=== PATIENT | female | born 1965 | race Caucasian/White ===

== ENCOUNTER → 2016-10-28 | Outpatient (CLI) | payer BC ==
[2016-10-28 08:12] LABS: Basophils # (A) 0.1 k/uL (0-0.2); Basophils % (A) 1 %; CH 29.7; CHCM 33.5; Eosinophils # (A) 0.2 k/uL (0-0.7); Eosinophils % (A) 4 %; HCT 39.5 % (34.0-46.0); Luc # (Auto) 0.21; Luc % (Auto) 4; Lymphocytes # (A) 2.4 k/uL (1.0-4.8); Lymphocytes % (A) 45 %; MCH 29.3 pg (25.0-35.0); MCHC 32.9 g/dL (31.0-37.0); MCV 89.1 fL (80.0-100.0); Mean Platelet Volume 6.5; Monocytes # (A) 0.5 k/uL (0-1.0); Monocytes % (A) 10 %; Neutrophils % (A) 37 %; RBC 4.44 m/uL (3.80-5.40); RDW 13.2 % (11.5-15.5); WBC 5.4 k/uL (3.8-10.6); WBC (Perox) 5.33
[2016-10-28 10:14] LABS: Erythrocyte Sedimentation Rate 16 mm/hr (0-20)
--- NOTE | 2016-10-28 13:12 | NM ---
EXAMINATION TYPE: NM bone 3 phase DATE OF EXAM: 10/28/2016 COMPARISON: X-ray 10/20/2016 HISTORY: Right knee pain Triple phase bone scintigraphy was performed following the injection of27.0 mCi Tc 99m MDP. Immediat e images and 4.75 hours post injection images acquired. FINDINGS: There is symmetric flow bilaterally. Symmetric uptake is seen and soft tissue windows. Does appear to be increased uptake surrounding the right knee photopenic prostheses. Bilateral photopenic defects c onsistent with previous surgery. IMPRESSION: Increased uptake surrounding the right knee prostheses relative to the left knee. Suggests the possib ility of loosening or infection given the asymmetry with the left knee. Correlate clinically and if n ecessary with tagged WBC study.
== END | disposition home or self-care (01) ==
LOC: RADNMMAIN 07:15
PROVIDERS: ATTEND Orthopaedic Surgery
DX: M25.561 Pain in right knee (principal); Z96.651 Presence of right artificial knee joint
CPT/HCPCS: 85652; 85025; 86140; 78315; A9503

== ENCOUNTER → 2017-12-16 | Outpatient (CLI) | payer BC | END | disposition home or self-care (01) | LOC: LABPAT 13:29 | PROVIDERS: ATTEND Orthopaedic Surgery | DX: Z01.812 Encounter for preprocedural laboratory examination (principal) | CPT/HCPCS: 87070 ==

== ENCOUNTER 2018-01-12 06:14 | Inpatient (IN) | payer BC ==
[2018-01-05 10:15] VITALS: BMI 38.0
--- NOTE | 2018-01-11 09:12 | HP ---
HISTORY AND PHYSICAL CHIEF COMPLAINT: Right knee pain. 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 It has progressed over the past several months. She underwent a previous total knee arthroplasty in 2011. She is having pain with prolonged walking. She has been taking ibuprofen for this. PAST MEDICAL HISTORY: Significant for arthritis, hypercholesterolemia, hypertension. PAST SURGICAL HISTORY: Significant for right total knee arthroplasty in addition to previous lumbar spine surgery. CURRENT MEDICATIONS: Hydrochlorothiazide, enalapril, simvastatin, ibuprofen. ALLERGIES: No known drug allergies. FAMILY HISTORY: Significant for hypertension, diabetes, and cancer along with heart disease. SOCIAL HISTORY: Negative for current tobacco or alcohol use. REVIEW OF SYSTEMS: Sixteen point review of systems otherwise reviewed and is noncontributory. PHYSICAL EXAMINATION: On examination, the patient is approximately 5 foot 2 inches, 210 pounds, of endomorphic habitus. HEENT: Exam is nonfocal. NECK: Supple. EXTREMITIES: She has painless passive motion of right hip. Straight leg raise is negative. Active motion right knee -10 to 80 degrees of flexion. She is tender about the proximal medial tibia and lateral distal femur. She has a moderate effusion. There is no warmth or erythema. Collaterals are stable. Her distal neurovascular appears intact in the right lower extremity. DIAGNOSTIC DATA: X-rays of the right knee obtained in the office show a previous total knee arthroplasty with anterior distal femoral lucency. Bone scan report from 10/28/2016 shows increased uptake about the prosthesis. 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 RECOMMENDATIONS: I talked to the patient at length regarding her condition and treatment options. At this point, she is quite symptomatic and limited because of pain. After thorough discussion, she opts to proceed with surgery. We will plan to proceed with revision right total knee arthroplasty. Risks and benefits were discussed at length in layman's terms. We will institute DVT prophylaxis postoperatively. MMODL / IJN: [id number] /
[~2018-01-12 06:14] MED LIST: ACETAMINOPHEN TAB 500 MG TAB PO ONE; DEXAMETHASONE SOD PHOSPHATE 10 MG/ML 1 ML VIAL IV ONE; LIDOCAINE 1% 20 ML VIAL (10MG/ML) FOR IV START INTRADERMA PRN; MELOXICAM 7.5 MG TAB PO ONE; MIDAZOLAM 2 MG/2 ML VIAL IV PRN; ONDANSETRON 4 MG/2 ML VIAL IVP ONE; SCOPOLAMINE 1.5MG/72HR PATCH TRANSDERM ONE; TRANEXAMIC ACID 1,000 MG in SODIUM CHLORIDE 0.9% 50 ML IVPB ONE; ceFAZolin IN SWFI 2 GM/20 ML SYRINGE IVP ONE
[2018-01-12] MEDS: LACTATED RINGERS 1,000 ML IV SCH (07:08)
[2018-01-12] MEDS ORDERED: PROPOFOL 10 MG/ML 20 ML VIAL IV ONE (08:00)
[2018-01-12] MEDS ORDERED: LIDOCAINE 1% INJ 10MG/ML (20 ML MDV) ONE (08:00)
[2018-01-12] MEDS ORDERED: SODIUM CHLORIDE 0.9% 100 ML BAG ONE (08:00)
[2018-01-12] MEDS ORDERED: fentaNYL (PF) 50 MCG/ML 2 ML AMP ONE (08:00)
[2018-01-12] MEDS ORDERED: MIDAZOLAM 2 MG/2 ML VIAL ONE (08:00)
[2018-01-12] MEDS ORDERED: SUCCINYLCHOLINE CHLORIDE VIAL 200 MG/10 ML VIAL IV ONE (08:00)
[2018-01-12] MEDS ORDERED: TRANEXAMIC ACID 1,000 MG/10 ML VIAL ONE (08:00)
[2018-01-12] MEDS ORDERED: ROPIVACAINE 246.25 MG, EPINEPHrine 0.5 MG, KETOROLAC 30 MG, cloNIDine HCL/PF 80 MCG, WA... MISCELLANE ONE ×5 (08:09)
[2018-01-12] MEDS ORDERED: ceFAZolin 3,000 MG in SODIUM CHLORIDE 0.9% IRRIGATIO 3,000 ML IRRIGATION ONE (08:47)
[2018-01-12] MEDS ORDERED: LACTATED RINGERS 1,000 ML IV ONE ×2 (10:36)
[2018-01-12] MEDS ORDERED: ROPIVACAINE 1,100 MG, SODIUM CHLORIDE 0.9% 500 ML 330 ML MISCELLANE PRN ×2 (10:53)
[2018-01-12] MEDS ORDERED: ONDANSETRON 4 MG/2 ML VIAL IVP PRN (11:14)
[2018-01-12] MEDS ORDERED: NALOXONE 0.4 MG/ML 1 ML VIAL IV PRN (11:14)
[2018-01-12] MEDS ORDERED: MAGNESIUM HYDROXIDE 2,400 MG/10 ML CUP PO PRN (11:14)
[2018-01-12] MEDS ORDERED: HYDROcodone/APAP 7.5-325MG 1 EACH TAB PO PRN (11:14)
--- NOTE | 2018-01-12 11:54 | P.OP ---
Date of Procedure: 01/12/18 Preoperative Diagnosis: Painful right total knee arthroplastyaseptic loosening Postoperative Diagnosis: Same Procedure(s) Performed: Revision right total knee arthroplastycemented Implants: Depuy TC3 size 2.5 femoral component, 2.5 tibial component, 29 mm tibial metaphyseal sleeve, 31 mm femoral metaphyseal sleeve, 10 x 75 mm femoral stem, 10 x 75 mm tibial stem, 10 mm articular surface. Anesthesia: GETA, regional, local Surgeon: Ino Patino [employer] Operations Engineer #1: Huy Perkins Estimated Blood Loss (ml): 150 Pathology: other (Frozen section) Condition: stable Disposition: PACU Indications for Procedure: The patient's a 52-year-old female who presents with progressive right knee pain over the past year or so. Clinically she is noted of evidence of aseptic loosening. A discussion of the risks and benefits of operative intervention versus continued conservative measures was made with patient. She opted to proceed with surgery. Operative risks to include infection, neurovascular injury, development of blood clots, possible component loosening, possible component failure and need for subsequent procedures was discussed. Informed consent was obtained. Operative Findings: As below Description of Procedure: The patient was brought to the operating room, and after induction of general anesthesia the right lower extremity was prepped and draped in normal fashion. The tourniquet was inflated to 270 mmHg. The previous midline incision was utilized extending 3 finger breaths above the superior pole of the patella extending to the medial aspect of the tibial tubercle. The skin and subcutaneous tissues were divided sharply. Electrocautery was used for hemostasis. A medial parapatellar arthrotomy is performed. The medial soft tissues to include the superficial and deep portions of the medial collateral ligament were elevated subperiosteally. Blunt retractors were placed. Synovial tissue was excised. This was sent for frozen section which showed no acute inflammation. The polyethylene was removed. The interface between the implant and the cement was then interrupted utilizing a small sagittal saw and straight osteotome. The femoral component was removed first with minimal bone loss. The tibial component was cemented removed with minimal bone loss. A murmur reamer was then sent down the tibial canal. The canal was reamed up to 10 mm. There is good distal fit and chatter. The proximal tibial reamer was utilized. A 29 mm broach was inserted to the appropriate level. There was good rotational stability. A cleanup cut was then made with a sagittal saw. The tibia sized most appropriately at 2.5. Attention was then paid towards preparing the femur. The canal was then reamed up to 10 mm. The entry reamer was inserted to appropriate depth. The canal was broached with a 31 mm broach and this was inserted to the appropriate depth. The distal cutting block was placed and no additional bone was resected. A size 2.5 cutting block was then placed in the appropriate rotation. The anterior, posterior, and chamfer cuts were then made. No additional bony augments were required. The box was then cut to the TC 3 level. The trial component was assembled and the trial tibial and femoral components were placed along with a 10 mm articular surface. I was able to obtain full flexion and extension with good stability with varus and valgus stress. The patella component was inspected. It appeared to be stable and tracked well throughout the range of motion. The trial components were then removed. The bony surfaces were prepared with pulsatile lavage and dried. The tibial component was assembled and the appropriate rotation. This was cemented in place and was fully seated. Excess cement was removed. The femoral component was cemented place and was fully seated. Excess cement was removed. The 10 mm articular surface was placed and the knee was put in full extension. After the cement had sufficiently hardened, the knee was again taken through a range of motion. Again I was able to obtain full flexion and extension with good stability with varus and valgus stress. Pulsatile lavage was utilized. The tourniquet was deflated with approximately with approximately 2 hours total tourniquet time. A deep drain was placed exiting laterally. The medial parapatellar arthrotomy was closed with #2 Ethibond suture. The subcutaneous tissues were reapproximated with interrupted 2-0 Vicryl sutures. The skin was 3-0 subcuticular strata fix suture. Skin tape and adhesive was applied. A sterile dressing was applied. The patient was awoken from general anesthesia and transferred to recovery room in good condition. Blood loss was estimated at 150 mL. No complications were incurred. Sponge and needle counts were correct at the end of the case.
[2018-01-12] MEDS: HYDROmorphone 0.5 MG/0.5 ML SYRINGE IVP PRN ×2 (12:15→12:29)
--- NOTE | 2018-01-12 12:37 | XR ---
EXAMINATION TYPE: XR knee limited RT DATE OF EXAM: 01/12/2018 CLINICAL HISTORY: Right knee pain and arthritis status post total knee replacement. TECHNIQUE: Portable AP and crosstable lateral views of the right knee are obtained immediately posto peratively. COMPARISON: None FINDINGS: Metallic hardware from total right knee arthroplasty is seen and appears satisfactory in a lignment and position. There is evidence of recent surgery with diffuse subcutaneous gas, soft tissu e swelling, and percutaneous suprapatellar surgical drain noted. IMPRESSION: METALLIC HARDWARE FROM TOTAL RIGHT KNEE ARTHROPLASTY IS SATISFACTORY IN ALIGNMENT.
[2018-01-12] MEDS: ceFAZolin IN SWFI 2 GM/20 ML SYRINGE IVP SCH ×2 (17:04→22:56)
[2018-01-12] MEDS: HYDROcodone/APAP 7.5-325MG 1 EACH TAB PO PRN (19:02)
[2018-01-12] MEDS: SENNOSIDES-DOCUSATE SODIUM 1 EACH TAB PO SCH (20:03)
[2018-01-12] MEDS ORDERED: ZOLPIDEM 10 MG TAB PO PRN (22:12)
[2018-01-12] MEDS: ATORVASTATIN 20 MG TAB PO SCH (22:56)
--- NOTE | 2018-01-13 00:40 | CONS ---
CONSULTATION DATE OF SERVICE: 01/12/2018 REASON FOR CONSULTATION: Medical management requested by Dr. Patino. CONSULTATIONS: A pleasant 52-year-old patient of Betty Ziegler. Undergone a right total knee arthroplasty. Has got a Hemovac in place. Pain is controlled. No nausea, vomiting. No dizziness. No lightheadedness. No chest pain or short of breath. Chronic stable condition includes hyperlipidemia, hypertension, osteoarthritis, anxiety, depression, insomnia. The patient's close friend is present. Patient did eat a light supper. REVIEW OF SYSTEMS: CONSTITUTIONAL: None. HEENT: None. RESPIRATORY: None. CARDIOVASCULAR: None. MUSCULOSKELETAL: Arthritic pain in many joints. GASTROINTESTINAL: None. GENITOURINARY: None. DERMATOLOGICAL, HEMATOLOGIC, LYMPHATIC: none. PSYCHIATRY: Anxiety and depression controlled. NEUROLOGICAL none. PAST MEDICAL HISTORY: Hyperlipidemia, hypertension, osteoarthritis, anxiety, depression, insomnia. PAST SURGICAL HISTORY: Back surgery hysterectomy, joint repair, tonsillectomy, tubal ligation, bilateral total knee laminectomy with epidural mass excision of epidural mass. SOCIAL HISTORY: Does not smoke or drink alcohol. Lives with a boyfriend, Ebenezer, works at [employer]. FAMILY HISTORY: Of cancer type unknown. HOME MEDICATIONS: 1. Effexor XR 37.5 p.o. daily. 2. Wellbutrin XL 300 mg p.o. daily. 3. Ambien 10 mg q.h.s. p.r.n. 4. Zocor 40 mg q.h.s. 5. Motrin 800 mg b.i.d. 6. Hydrochlorothiazide 25 mg p.o. daily. 7. Vasotec 20 mg p.o. daily. 8. Tylenol Extra strength 500-1000 mg q.6h p.r.n. ALLERGIES: None. PHYSICAL EXAMINATION: VITAL SIGNS: Temperature 98.2. Pulse 106, respirations 16, blood pressure 123/70, pulse ox 96% on room air. GENERAL APPEARANCE: Well built, BMI 38. Lying in bed comfortable. EYES: Pupils equal. Conjunctivae normal. HEENT: External appearance of nose and ears normal. Oral cavity normal. NECK: JVD not raised. Mass not palpable. RESPIRATORY: Effort . LUNGS are clear. CARDIOVASCULAR: 1st and 2nd sounds normal. No edema. ABDOMEN: Soft, nontender. Liver and spleen not palpable. LYMPHATICS: No lymph nodes palpable in the neck or axilla. PSYCHIATRY: Alert and oriented times three. Mood and affect normal. EXTREMITIES: Musculoskeletal evidence slightly in the hands. Dressing over the right knee. INVESTIGATIONS: No lab work. ASSESSMENT: 1. Right total knee arthroplasty. 2. Primary osteoarthritis of the joints. 3. Essential hypertension. 4. Hyperlipidemia. 5. Chronic insomnia, idiopathic. 6. Anxiety, depression not otherwise specified, controlled. 7. Obesity; BMI 38. PLAN: Home medications are resumed. Patient's pain management has been placed. Also getting IV fluids. Also IV cefazolin for antibiotic prophylaxis. The patient is on Xarelto for DVT prophylaxis. Patient should see a dietitian for weight loss measures. Care was discussed with the patient. Questions were answered. MMODL / IJN: [id number] /
[2018-01-13] MEDS: HYDROcodone/APAP 7.5-325MG 1 EACH TAB PO PRN ×4 (00:58→19:30)
[2018-01-13] MEDS: HYDROmorphone 1 MG/ML 1 ML SYRINGE IVP PRN ×3 (04:15→21:39)
[2018-01-13] MEDS: LACTATED RINGERS 1,000 ML IV SCH (04:47)
[2018-01-13] MEDS: traMADol 50 MG TAB PO PRN ×3 (05:58→21:30)
[2018-01-13 07:57] LABS: Basophils % (A) 0 %; Eosinophils % (A) 0 %; HCT 30.2 % (34.0-46.0); HGB 9.9 gm/dL (11.4-16.0); Lymphocytes # (A) 2.6 k/uL (1.0-4.8); Lymphocytes % (A) 30 %; MCH 28.3 pg (25.0-35.0); MCHC 32.6 g/dL (31.0-37.0); MCV 86.8 fL (80.0-100.0); Mean Platelet Volume 6.5; Monocytes # (A) 0.8 k/uL (0-1.0); Monocytes % (A) 9 %; Neutrophils # (A) 5.1 k/uL (1.3-7.7); Neutrophils % (A) 59 %; Platelet Count 282 k/uL (150-450); RBC 3.48 m/uL (3.80-5.40); RDW 14.3 % (11.5-15.5); WBC 8.7 k/uL (3.8-10.6)
[2018-01-13] MEDS: VENLAFAXINE HCL ER 37.5 MG CAP PO SCH (08:42)
[2018-01-13] MEDS: buPROPion XL 300 MG TAB.ER.24H PO SCH (08:42)
[2018-01-13] MEDS: RIVAROXABAN 10 MG TAB PO SCH (08:42)
--- NOTE | 2018-01-13 09:48 | P.PN ---
Progress Note - Text 01/13 727am 52-year-old female status post total knee replacement by Dr. Patino. Patient has On-Q pump for postop pain control with the solution running at 8 mL an hour she has a VAS of 4 and she is very comfortable plan to continue On-Q pump infusion
--- NOTE | 2018-01-13 09:55 | P.ONQ ---
Anesthesiology Proc Note - PNB - Peripheral Nerve Block Performed Right Adductor Canal Infusion Time Out Performed: Yes Procedure Start Time: :21 Procedure Stop Time: :30 Indication: Acute Post-Operative Pain, Requested by physician Sedation Type: Sedate with meaningful contact maintained Preparation: Sterile Dressing Position: Supine Catheter: Indwelling Needle Types: On-Q Needle Size: 100mm (4") Needle Gauge: 21 Technique: Ultrasound Injectate: 0.5% Ropivacaine (see comment for volume) (ropi .5% 20cc) Blood Aspirated: No Pain Paresthesia on Injection Noted: No Resistance on Injection: Normal Events: Uneventful and Well Tolerated
[2018-01-13] MEDS: LISINOPRIL 20 MG TAB PO SCH (10:22)
--- NOTE | 2018-01-13 11:20 | P.PN ---
Subjective Progress Note Date: 01/13/18 Principal diagnosis: Status post revision right total knee arthroplasty Patient is seen today resting in her hospital bed, she appears comfortable. She has ambulated with therapy. Her pain is controlled. She denies any chest pain or shortness of breath. Objective - Vital Signs Vital signs: Vital Signs Temp 99.3 F 01/13/18 07:25 Pulse 73 01/13/18 07:25 Resp 14 01/13/18 07:25 BP 120/76 01/13/18 07:25 Pulse Ox 99 01/13/18 07:25 Intake & Output 01/12/18 01/13/18 01/13/18 18:59 06:59 18:59 Intake Total 1637 236 Output Total 160 400 Balance 1477 -400 236 Weight 94.347 kg Intake: IV 1401 Oral 236 236 Output: Drainage 50 Right Knee 50 Urine 350 Estimated Blood Loss 160 Other: Voiding Method Toilet - Exam Right lower extremity: Incision is clean, dry, and intact. The exofin fusion tape is in good condition. There is minimal soft tissue swelling and ecchymosis surrounding the medial and lateral aspects of the incision. Calf is soft, no tenderness with palpation. Plantar flexion, dorsiflexion, EHL, FHL are intact. Sensory exam to light touch throughout the extremity is intact, dorsal pedis pulses 2+. - Labs CBC & Chem 7: 01/13/18 07:20 Labs: Abnormal Lab Results - Last 24 Hours (Table) 01/13/18 Range/Units 07:20 RBC 3.48 L (3.80-5.40) m/uL Hgb 9.9 L (11.4-16.0) gm/dL Hct 30.2 L (34.0-46.0) % Assessment and Plan Plan: Assessment: Postoperative day #1 status post revision right total knee arthroplasty Plan: Pain control, continue current oral medication GI and DVT prophylaxis, continue current medication Encourage incentive spirometer Daily dressing changes/ice and elevate Continue worker physical therapy and use of CPM Medical recommendations Discharge planning: Plan for discharge home tomorrow Time with Patient: Less than 30
--- NOTE | 2018-01-13 15:20 | PN ---
PROGRESS NOTE DATE OF SERVICE: 01/13/2018 PRESENTING COMPLAINT: Right knee surgery. INTERVAL HISTORY: Patient is status post right knee surgery. Pain is better controlled. Has been out of bed. Tolerating a diet. No chest pain or short of breath. No nausea, vomiting. REVIEW OF SYSTEMS: Done for constitutional, cardiovascular, GI, pulmonary; relevant findings as above. CURRENT MEDICATIONS: Reviewed. PHYSICAL EXAMINATION: Temperature 99.3, pulse 73, respiration 14, blood pressure 120/76, pulse ox 99% on room air. GENERAL APPEARANCE: Sitting up, cheerful. EYES: Pupils equal, conjunctivae are normal. HEENT: External appearance of nose and ears normal. Oral cavity normal. NECK: JVD not raised. Mass not palpable. RESPIRATORY: Effort normal. Lungs are clear. CARDIOVASCULAR: First and second sounds are normal, no edema. ABDOMEN: Soft, nontender. Liver and spleen not palpable. PSYCHIATRY: Alert and oriented x3. Mood and affect normal. INVESTIGATIONS: White count 8.7, hemoglobin 9.9. ASSESSMENT: 1. Right total knee arthroplasty. 2. Primary osteoarthritis of the joints. 3. Essential hypertension. 4. Hyperlipidemia. 5. Chronic insomnia, idiopathic. 6. Anxiety, depression, not otherwise specified, controlled. 7. Obesity; body mass index 38. PLAN: Continue current medication and treatment plan. Care was discussed with the patient, doing well. MMODL / IJN: [id number] /
[2018-01-13] MEDS: ATORVASTATIN 20 MG TAB PO SCH (20:35)
[2018-01-13] MEDS: SENNOSIDES-DOCUSATE SODIUM 1 EACH TAB PO SCH (20:35)
[2018-01-14] MEDS: HYDROcodone/APAP 7.5-325MG 1 EACH TAB PO PRN ×4 (02:04→22:14)
[2018-01-14] MEDS: HYDROmorphone 1 MG/ML 1 ML SYRINGE IVP PRN ×2 (03:24→16:35)
[2018-01-14] MEDS: LACTATED RINGERS 1,000 ML IV SCH (04:28)
--- NOTE | 2018-01-14 06:56 | P.PN ---
Progress Note - Text Progress Note Date: 01/14/18 Gwendolyn is a 52-year-old female was postop day 1 from a total knee replacement. She an adductor canal catheter which is working well. She reports her pain is under control is using minimal amounts of when necessary medications. The catheter site is clean and dry. Catheters running 8 mL per hour at this time. There is no weakness in the lower extremities. We'll continue to monitor the patient while she is in the hospital.
[2018-01-14] MEDS: VENLAFAXINE HCL ER 37.5 MG CAP PO SCH (07:54)
[2018-01-14] MEDS: RIVAROXABAN 10 MG TAB PO SCH (07:54)
[2018-01-14] MEDS: LISINOPRIL 20 MG TAB PO SCH (07:55)
[2018-01-14] MEDS: buPROPion XL 300 MG TAB.ER.24H PO SCH (07:55)
--- NOTE | 2018-01-14 14:26 | P.PN ---
Subjective Progress Note Date: 01/14/18 Principal diagnosis: Status post revision right total knee arthroplasty Patient is seen today resting in her hospital bed, she appears comfortable. She has ambulated with therapy. Her pain is controlled. She denies any chest pain or shortness of breath. Objective - Vital Signs Vital signs: Vital Signs Temp 98.2 F 01/14/18 06:45 Pulse 85 01/14/18 07:10 Resp 16 01/14/18 07:10 BP 149/77 01/14/18 06:45 Pulse Ox 99 01/14/18 06:45 Intake & Output 01/13/18 01/14/18 01/14/18 18:59 06:59 18:59 Intake Total 1078 500 240 Output Total 50 Balance 1078 450 240 Weight 94.347 kg Intake: IV 360 Lactated Ringers 1,000 ml 360 @ 60 mls/hr IV .[id number] EDUAR Rx#:[id number] Oral 718 500 240 Output: Drainage 50 Right Knee 50 Other: Voiding Method Toilet Toilet # Voids 2 1 - Exam Right lower extremity: Incision is clean, dry, and intact. The exofin fusion tape is in good condition. There is minimal soft tissue swelling and ecchymosis surrounding the medial and lateral aspects of the incision. Calf is soft, no tenderness with palpation. Plantar flexion, dorsiflexion, EHL, FHL are intact. Sensory exam to light touch throughout the extremity is intact, dorsal pedis pulses 2+. - Labs CBC & Chem 7: 01/13/18 07:20 Assessment and Plan Plan: Assessment: Postoperative day #2 status post revision right total knee arthroplasty Plan: Pain control, continue current oral medication GI and DVT prophylaxis, continue current medication Encourage incentive spirometer Daily dressing changes/ice and elevate Continue worker physical therapy and use of CPM Medical recommendations Discharge planning: Plan for discharge home tomorrow Time with Patient: Less than 30
[2018-01-14] MEDS ORDERED: SENNOSIDES-DOCUSATE SODIUM 1 EACH TAB PO PRN (16:06)
--- NOTE | 2018-01-14 16:10 | P.PN ---
Subjective on-call hospitalist covering Dr. mazariegos over the weekend and holidays this is a pleasant 52 years old female with past medical history of hypertension , hyperlipidemia and osteoarthritis. She was admitted for elective total total right knee arthroplasty for her ongoing degenerative joint disease. We've been asked to see the patientfor consultand medical management. When I saw the patient she was sitting in the chair not in distress. Her pain at the surgical site was re-/10 in severity but was a due to pain medication. She was complaining of from constipation. However patient denies chest pain or dyspnea. No change in urine or bowel habits. No fever. Vitals stable. Hemoglobin 9.9 Objective - Vital Signs Vital signs: Vital Signs Temp 98 F 01/14/18 15:00 Pulse 94 01/14/18 15:00 Resp 16 01/14/18 15:00 BP 103/66 01/14/18 15:00 Pulse Ox 98 01/14/18 15:00 Intake & Output 01/13/18 01/14/18 01/14/18 18:59 06:59 18:59 Intake Total 1078 500 240 Output Total 50 Balance 1078 450 240 Weight 94.347 kg Intake: IV 360 Lactated Ringers 1,000 ml 360 @ 60 mls/hr IV .[id number] EDUAR Rx#:[id number] Oral 718 500 240 Output: Drainage 50 Right Knee 50 Other: Voiding Method Toilet Toilet # Voids 2 1 - Exam GENERAL: The patient is alert and oriented x3, not in any acute distress. Well developed, well nourished. HEENT: Pupils are round and equally reacting to light. EOMI. No scleral icterus. No conjunctival pallor. Normocephalic, atraumatic. No pharyngeal erythema. No thyromegaly. CARDIOVASCULAR: S1 and S2 present. No murmurs, rubs, or gallops. PULMONARY: Chest is clear to auscultation, no wheezing or crackles. ABDOMEN: Soft, nontender, nondistended, normoactive bowel sounds. No palpable organomegaly. MUSCULOSKELETAL: No joint swelling or deformity. -EXTREMITIES: No cyanosis, clubbing, or pedal edema. surgical wound of the right knee looks closed in a dressing, with no surrounding signs symptoms of cellulitis. Further examination is deferred to the surgical team NEUROLOGICAL: Gross neurological examination did not reveal any focal deficits. SKIN: No rashes. - Labs CBC & Chem 7: 01/13/18 07:20 Assessment and Plan Assessment: status post right knee arthroplasty history of degenerative joint disease Essential hypertension Hyperlipidemia Plan: this is a pleasant 52 years old female presents with right knee arthroplasty. Labs and medication were reviewed.. Continue same treatment. Continue with symptomatic treatment. Resume home medication. Monitor lytes and vitals. we will increase her Senokot from daily at bedtime to twice a day when necessary for constipation. DVT and GI prophylaxis. DVT prophylaxis and pain management as per primary team.Further recommendations of the clinical course of the patient thank you for consulting us, please feel free to contact us for any further question or clarification.
[2018-01-14] MEDS: traMADol 50 MG TAB PO PRN (19:51)
[2018-01-14] MEDS: ATORVASTATIN 20 MG TAB PO SCH (19:51)
[2018-01-14 22:37] VITALS: RESP 18
[2018-01-15] MEDS: HYDROcodone/APAP 7.5-325MG 1 EACH TAB PO PRN ×3 (01:58→14:53)
[2018-01-15] MEDS: LACTATED RINGERS 1,000 ML IV SCH (06:04)
[2018-01-15 07:29] VITALS: BP 120/63; PULSE 90; TEMP 98.6
--- NOTE | 2018-01-15 08:06 | P.PN ---
Subjective Progress Note Date: 01/15/18 Principal diagnosis: Status post revision right total knee arthroplasty Patient is seen today resting in her hospital bed, she appears comfortable. She has ambulated with therapy. Her pain is controlled. She denies any chest pain or shortness of breath. Objective - Vital Signs Vital signs: Vital Signs Temp 98.6 F 01/15/18 07:00 Pulse 90 01/15/18 07:00 Resp 18 01/15/18 03:57 BP 120/63 01/15/18 07:00 Pulse Ox 100 01/15/18 07:00 Intake & Output 01/14/18 01/15/18 01/15/18 18:59 06:59 18:59 Intake Total 1040 Balance 1040 Weight 94.347 kg 94.347 kg Intake: Oral 1040 Other: Voiding Method Toilet Toilet # Voids 2 - Exam Right lower extremity: Incision is clean, dry, and intact. The exofin fusion tape is in good condition. There is minimal soft tissue swelling and ecchymosis surrounding the medial and lateral aspects of the incision. Calf is soft, no tenderness with palpation. Plantar flexion, dorsiflexion, EHL, FHL are intact. Sensory exam to light touch throughout the extremity is intact, dorsal pedis pulses 2+. - Labs CBC & Chem 7: 01/13/18 07:20 Assessment and Plan Plan: Assessment: Postoperative day #3 status post revision right total knee arthroplasty Plan: Pain control, continue current oral medication GI and DVT prophylaxis, continue current medication Encourage incentive spirometer Daily dressing changes/ice and elevate Continue worker physical therapy and use of CPM Medical recommendations Discharge planning: Plan for discharge home today Time with Patient: Less than 30
--- NOTE | 2018-01-15 08:09 | P.DS ---
Providers Date of admission: 01/12/18 06:14 Expected date of discharge: 01/15/18 Attending physician: Ino Patino Consults: 01/12/18 11:16 Consult Physician Routine Consulting Provider: Betty Ziegler Consult Reason/Comments: Medical Management Do you want consulting provider notified?: Yes 01/12/18 14:06 Consult Physician Routine Consulting Provider: Jacob Mcdaniel Consult Reason/Comments: medical management Do you want consulting provider notified?: Yes Primary care physician: Betty Ziegler Hospital Course: Date of admission: 01/12/2018 Date of discharge: 01/15/2018 Admission diagnosis: Status post revision right total knee arthroplasty Discharge diagnosis: Same Attending physician: Dr. Patino Surgical procedures: Revision right total knee arthroplasty Brief history: Patient is a 52-year-old female with a history of a painful right total knee arthroplasty with evidence of aseptic loosening. At this point patient has failed conservative treatment measures and has opted to proceed with a elective revision right total knee arthroplasty. Hospital course: Details of patient's surgery can be found in operative report. Patient tolerated the procedure well and was subsequently transported to orthopedic floor. Patient's orthopeidc and medical care was provided daily. Patient had daily laboratory tests performed for evaluation of overall blood counts. Patient had daily physical therapy to include strengthening range of motion as well as education with walker ambulation. Patient had daily CPM usage as part of their physical therapy program. Patient was treated with Xarelto for their postoperative DVT prophylaxis during their inpatient stay. Patient was noted to have a relatively uneventful postoperative course. Patient reported satisfactory pain control with oral pain medications by postoperative day 0. Patient showed satisfactory progress with physical therapy. Patient moved steadily through the program and had no difficulty meeting the goals by postoperative day 2. Given patient's otherwise satisfactory course and having met physical therapy goals, plan is to discharge patient home on postoperative day 3. Discharge condition/disposition: Patient will be discharged home in stable condition. Discharge medications: Instructions are given on resumption of patient's normal daily medications per primary care recommendation, in addition patient will be prescribed [place] 7.5mg/325mg, Tramadol 50mg, Eliquis 2.5mg, Colace 100mg. Discharge instructions: 1. Wound care and infection precautions, keep incision dry and covered while showering, no lotions, creams, moisturizers. No soaking, tubs, pools, hottubs. Do not scrub over the incision. 2. Weight-bear as tolerated with walker / cane until follow-up. 3. Ice and elevate when necessary. Do not exceed 20 minutes per hour with ice pack. 4. Utilize compression sleeve until seen at first follow up appointment. 5. Visiting nursing care. 6. Home physical therapy including home CPM. 7. Pain meds and anticoagulants per prescription. 8. Pain medication has potential to cause constipation. Increase oral fluid and fiber intake. Contact primary care provider if you have not had a bowel movement within 48 hours after discharge 9. No anti-inflammatory medication until discussed at first post operative visit, this including Motrin, Aleve, Mobic, Diclofenac. 10. Follow up in office at 2 weeks postop with Otilio Perkins PA-C 11. Follow up with your primary care doctor 7-10 days after discharge. 12. Contact [facility] with any questions, . Procedures: Revision right total knee arthroplasty Patient Condition at Discharge: Good Plan - Discharge Summary Discharge Rx Participant: Yes New Discharge Prescriptions: New Apixaban [Eliquis] 2.5 mg PO BID #30 tab Docusate [Colace] 100 mg PO DAILY #30 capsule HYDROcodone/APAP 7.5-325MG [[place] 7.5] 1 - 2 each PO Q6HR PRN #56 tab PRN Reason: Pain traMADol HCl [Ultram] 50 mg PO Q6H PRN #28 tab PRN Reason: Pain No Action Hydrochlorothiazide [Hydrodiuril] 25 mg PO DAILY buPROPion HCL [Wellbutrin XL] 300 mg PO DAILY Enalapril [Vasotec] 20 mg PO DAILY Zolpidem [Ambien] 10 mg PO HS PRN PRN Reason: Insomnia Simvastatin [Zocor] 40 mg PO HS Acetaminophen [Tylenol Extra Strength] 500 - 1,000 mg PO Q6H PRN PRN Reason: Pain Venlafaxine HCl [Effexor XR] 37.5 mg PO DAILY Discharge Medication List Enalapril [Vasotec] 20 mg PO DAILY 08/30/13 [History] Hydrochlorothiazide [Hydrodiuril] 25 mg PO DAILY 08/30/13 [History] Simvastatin [Zocor] 40 mg PO HS 08/30/13 [History] Zolpidem [Ambien] 10 mg PO HS PRN 08/30/13 [History] buPROPion HCL [Wellbutrin XL] 300 mg PO DAILY 08/30/13 [History] Acetaminophen [Tylenol Extra Strength] 500 - 1,000 mg PO Q6H PRN 01/05/18 [ History] Venlafaxine HCl [Effexor XR] 37.5 mg PO DAILY 01/12/18 [History] Apixaban [Eliquis] 2.5 mg PO BID #30 tab 01/15/18 [Rx] Docusate [Colace] 100 mg PO DAILY #30 capsule 01/15/18 [Rx] HYDROcodone/APAP 7.5-325MG [[place] 7.5] 1 - 2 each PO Q6HR PRN #56 tab 01/15/18 [ Rx] traMADol HCl [Ultram] 50 mg PO Q6H PRN #28 tab 01/15/18 [Rx] Follow up Appointment(s)/Referral(s): Betty Ziegler MD [Primary Care Provider] - 01/22/18 9:00 am (Please be 10 minutes early) Huy Perkins PAC [PHYSICIAN PUBLIC EVENTS FACILITIES RENTAL MANAGER] - 01/27/18 3:30 pm [facility] [REFERRING] - Activity/Diet/Wound Care/Special Instructions: Orthopedic Discharge Instructions: 1. Wound care and infection precautions, keep incision dry and covered while showering, no lotions, creams, moisturizers. No soaking, pools, hot tubs. Do not scrub over incision. 2. Weight-bear as tolerated with walker / cane until follow-up. 3. Ice and elevate when necessary. Do not exceed 20 minutes per hour with ice pack. 4. Utilize compression sleeve until seen at first follow up appointment. 5. Pain meds and anticoagulants per prescription. 6. Pain medication has potential to cause constipation. Increase oral fluid and fiber intake. Contact primary care provider if you have not had a bowel movement within 48 hours after discharge. 7. No anti-inflammatory medication until discussed at first post operative visit, this including Motrin, Aleve, Mobic, Diclofenac. 8. Follow up in office at 2 weeks postop with Otilio Perkins PA-C 9. Follow up with your primary care doctor 7-10 days after discharge. 10. Contact [facility] with any questions, . Discharge Disposition: HOME WITH HOME HEALTH SERVICES
[2018-01-15 08:18] LABS: Basophils % (A) 0 %; Eosinophils # (A) 0.1 k/uL (0-0.7); Eosinophils % (A) 2 %; HCT 28.4 % (34.0-46.0); Hypochromasia Slight; Lymphocytes # (A) 2.2 k/uL (1.0-4.8); Lymphocytes % (A) 39 %; MCH 28.3 pg (25.0-35.0); MCHC 31.7 g/dL (31.0-37.0); MCV 89.5 fL (80.0-100.0); Mean Platelet Volume 6.6; Monocytes # (A) 0.4 k/uL (0-1.0); Monocytes % (A) 7 %; Neutrophils # (A) 2.7 k/uL (1.3-7.7); Neutrophils % (A) 49 %; Platelet Count 256 k/uL (150-450); RBC 3.17 m/uL (3.80-5.40); RDW 14.2 % (11.5-15.5); WBC 5.6 k/uL (3.8-10.6)
[2018-01-15] MEDS: RIVAROXABAN 10 MG TAB PO SCH (09:54)
[2018-01-15] MEDS: LISINOPRIL 20 MG TAB PO SCH (09:54)
[2018-01-15] MEDS: VENLAFAXINE HCL ER 37.5 MG CAP PO SCH (09:55)
[2018-01-15] MEDS: buPROPion XL 300 MG TAB.ER.24H PO SCH (12:43)
--- NOTE | 2018-01-15 16:27 | P.PN ---
Subjective on-call hospitalist covering Dr. mazariegos over the weekend and holidays this is a pleasant 52 years old female with past medical history of hypertension , hyperlipidemia and osteoarthritis. She was admitted for elective total total right knee arthroplasty for her ongoing degenerative joint disease. We've been asked to see the patientfor consultand medical management. When I saw the patient she was sitting in the chair not in distress. Her pain at the surgical site was re-/10 in severity but was a due to pain medication. She was complaining of from constipation. However patient denies chest pain or dyspnea. No change in urine or bowel habits. No fever. Vitals stable. Hemoglobin 9.9 01/15/2018 Patient feels much better today. She denies pain anywhere in her body. No chest pain. No dyspnea. Pain at surgical site is controlled. She feels ready to be discharged. Patient is most likely is going to be discharged today. Pain medicine and DVT prophylaxis has been addressed as per primary team. Last night patient has normal-low blood pressure at 98/60, she is currently on lisinopril 40 mg daily, and was at home on Vasotec 20 mg daily. We Recommend to discharge the patient on lower dose of vasa take as 10 mg in the morning and 5 mg in the evening. Patient informed and she agrees. Patient was instructed to take first dose tomorrow and to follow up with her PCP within one week and she agrees. Appointments were already made by the staff for her PCP and surgical team, patient agrees with the appointments and the timing and said she will follow up. Objective - Vital Signs Vital signs: Vital Signs Temp 98.6 F 01/15/18 07:00 Pulse 90 01/15/18 07:00 Resp 18 01/15/18 03:57 BP 120/63 01/15/18 07:00 Pulse Ox 100 01/15/18 07:00 Intake & Output 01/14/18 01/15/18 01/15/18 18:59 06:59 18:59 Intake Total 1040 Balance 1040 Weight 94.347 kg 94.347 kg Intake: Oral 1040 Other: Voiding Method Toilet Toilet Toilet # Voids 2 2 - Exam GENERAL: The patient is alert and oriented x3, not in any acute distress. Well developed, well nourished. HEENT: Pupils are round and equally reacting to light. EOMI. No scleral icterus. No conjunctival pallor. Normocephalic, atraumatic. No pharyngeal erythema. No thyromegaly. CARDIOVASCULAR: S1 and S2 present. No murmurs, rubs, or gallops. PULMONARY: Chest is clear to auscultation, no wheezing or crackles. ABDOMEN: Soft, nontender, nondistended, normoactive bowel sounds. No palpable organomegaly. MUSCULOSKELETAL: No joint swelling or deformity. -EXTREMITIES: No cyanosis, clubbing, or pedal edema. surgical wound of the right knee looks closed in a dressing, with no surrounding signs symptoms of cellulitis. Further examination is deferred to the surgical team NEUROLOGICAL: Gross neurological examination did not reveal any focal deficits. SKIN: No rashes. - Labs CBC & Chem 7: 01/15/18 07:15 Labs: Abnormal Lab Results - Last 24 Hours (Table) 01/15/18 Range/Units 07:15 RBC 3.17 L (3.80-5.40) m/uL Hgb 9.0 L (11.4-16.0) gm/dL Hct 28.4 L (34.0-46.0) % Assessment and Plan Assessment: status post right knee arthroplasty history of degenerative joint disease Essential hypertension, medication adjusted Hyperlipidemia Plan: this is a pleasant 52 years old female presents with right knee arthroplasty. Labs and medication were reviewed.. Continue same treatment. Continue with symptomatic treatment. Resume home medication. Monitor lytes and vitals. we will increase her Senokot from daily at bedtime to twice a day when necessary for constipation. DVT and GI prophylaxis. DVT prophylaxis and pain management as per primary team.Further recommendations of the clinical course of the patient. Patient most likely is going to be discharged today. Patient is stable from a medical standpoint point for discharge. Blood pressure medication was lowered to little bit due to an episode of hypotension, mostly related to her pain medication. However patient is asymptomatic. He was instructed to follow up with her PCP and she agrees. thank you for consulting us, please feel free to contact us for any further question or clarification.
[2018-01-16] MEDS ORDERED: LISINOPRIL 10 MG TAB PO SCH ×2 (09:00)
== END 2018-01-15 15:01 | disposition home health service (06) | DRG 468 ==
LOC: 2ORMAIN 06:14 → 4SSUR 14:02
PROVIDERS: ADMIT Orthopaedic Surgery; ATTEND Orthopaedic Surgery
PROC: 0SRC0J9 Replacement of Right Knee Joint with Synthetic Substitute, Cemented, Open Approach (ICD-10-PCS; 2018-01-12)
PROC: 0SPC0JZ Removal of Synthetic Substitute from Right Knee Joint, Open Approach (ICD-10-PCS; principal; 2018-01-12 08:00)
DX: T84.032A Mechanical loosening of internal right knee prosthetic joint, initial encounter (principal); I95.9 Hypotension, unspecified; T84.84XA Pain due to internal orthopedic prosthetic devices, implants and grafts, initial encounter; M19.91 Primary osteoarthritis, unspecified site; I10 Essential (primary) hypertension; E78.5 Hyperlipidemia, unspecified; E78.00 Pure hypercholesterolemia, unspecified; K59.00 Constipation, unspecified; F32.9 Major depressive disorder, single episode, unspecified; F51.01 Primary insomnia; F41.9 Anxiety disorder, unspecified; M43.10 Spondylolisthesis, site unspecified; K21.9 Gastro-esophageal reflux disease without esophagitis; E66.9 Obesity, unspecified; Z68.38 Body mass index [BMI] 38.0-38.9, adult; Z79.899 Other long term (current) drug therapy; Z90.710 Acquired absence of both cervix and uterus; Z98.51 Tubal ligation status; Y79.2 Prosthetic and other implants, materials and accessory orthopedic devices associated with adverse incidents; Y83.1 Surgical operation with implant of artificial internal device as the cause of abnormal reaction of the patient, or of later complication, without mention of misadventure at the time of the procedure; Z82.49 Family history of ischemic heart disease and other diseases of the circulatory system; Z83.3 Family history of diabetes mellitus; Z80.9 Family history of malignant neoplasm, unspecified
CPT/HCPCS: 85025; 88305; 88331

== ENCOUNTER → 2018-03-29 | Outpatient (CLI) | payer BC ==
[2018-03-29 17:10] LABS: Basophils % (A) 1 %; Eosinophils # (A) 0.1 k/uL (0-0.7); Eosinophils % (A) 2 %; Lymphocytes # (A) 2.3 k/uL (1.0-4.8); Lymphocytes % (A) 37 %; MCH 26.2 pg (25.0-35.0); MCHC 31.6 g/dL (31.0-37.0); MCV 82.9 fL (80.0-100.0); Mean Platelet Volume 6.6; Monocytes # (A) 0.6 k/uL (0-1.0); Monocytes % (A) 9 %; Neutrophils # (A) 3.1 k/uL (1.3-7.7); Neutrophils % (A) 49 %; Platelet Count 282 k/uL (150-450); RBC 4.58 m/uL (3.80-5.40); RDW 15.7 % (11.5-15.5); WBC 6.3 k/uL (3.8-10.6)
[2018-03-29 17:19] LABS: Potassium 4.3 mmol/L (3.5-5.1)
[2018-03-29 17:20] LABS: INR 0.9 (<1.2); Prothrombin Time 9.8 sec (9.0-12.0)
== END | disposition home or self-care (01) ==
LOC: LABPAT 15:52
PROVIDERS: ATTEND Orthopaedic Surgery
DX: Z01.812 Encounter for preprocedural laboratory examination (principal); M16.11 Unilateral primary osteoarthritis, right hip
CPT/HCPCS: 80051; 85025; 85610; 86850; 86900; 86901; 87070

== ENCOUNTER 2018-04-07 13:00 | Inpatient (IN) | payer BC ==
--- NOTE | 2018-04-07 10:40 | HP ---
HISTORY AND PHYSICAL CHIEF COMPLAINT: Right hip pain. 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 Progressing over the past several months. She is having groin and thigh pain with weightbearing activities. She has been limping. She has recently recovered after undergoing a revision right total knee arthroplasty. PAST MEDICAL HISTORY: Significant for arthritis, hypercholesterolemia, hypertension. PAST SURGICAL HISTORY: Significant for right total knee arthroplasty with subsequent revision, lumbar fusion, left total knee arthroplasty. CURRENT MEDICATIONS: 1. Enalapril. 2. Hydrochlorothiazide. 3. Simvastatin. 4. Ibuprofen. 5. Bupropion. ALLERGIES: She denies drug allergies. FAMILY HISTORY: Significant for heart disease, cancer and hypertension. SOCIAL HISTORY: Negative for current tobacco or alcohol use. REVIEW OF SYSTEMS: Sixteen point review of systems otherwise reviewed and is noncontributory. PHYSICAL EXAMINATION: On examination, the patient is approximately 5 feet 2 inches, 210 pounds of endomorphic habitus. HEENT exam is nonfocal. Neck is supple. Passive motion right hip, flexion 80 degrees, external rotation with the hip flexed at 60 degrees, internal rotation 10 degrees with pain. Clinically, she has got 1 cm shortening of right lower extremity compared to the left. Her distal neurovascular exam appears intact in the right lower extremity. AP of the pelvis shows severe right hip osteoarthrosis with [id number] changes and some flattening of the central femoral head. IMPRESSION: Right hip severe osteoarthrosis-symptomatic. RECOMMENDATIONS: I talked to the patient at length regarding her condition and treatment options. At this point, she is quite symptomatic and opts to proceed with surgery. We will plan to proceed with right total hip arthroplasty. We will institute DVT prophylaxis postoperatively. Risks and benefits were discussed at length in layman's terms. MMODL / IJN: [id number] /
[2018-04-08] MEDS ORDERED: TRANEXAMIC ACID 1,000 MG in SODIUM CHLORIDE 0.9% 100 ML IVPB PRN (05:00)
[2018-04-08] MEDS ORDERED: TRANEXAMIC ACID 1,000 MG in SODIUM CHLORIDE 0.9% 50 ML IVPB ONE ×4 (05:00)
[2018-04-08] MEDS ORDERED: ceFAZolin IN SWFI 2 GM/20 ML SYRINGE IVP ONE (05:00)
[2018-04-08] MEDS ORDERED: ACETAMINOPHEN TAB 500 MG TAB PO ONE (05:00)
[2018-04-08] MEDS ORDERED: MIDAZOLAM (PF) 2 MG/2 ML VIAL IV PRN (05:42)
[2018-04-08] MEDS ORDERED: fentaNYL (PF) 50 MCG/ML 2 ML AMP IV PRN (05:42)
[2018-04-08] MEDS ORDERED: LIDOCAINE 1% 20 ML VIAL (10MG/ML) FOR IV START INTRADERMA PRN (05:42)
[2018-04-08] MEDS ORDERED: HYDROmorphone 0.5 MG/0.5 ML SYRINGE IVP PRN (05:42)
[2018-04-08] MEDS: ONDANSETRON 4 MG/2 ML VIAL IVP ONE ×2 (11:38→16:13)
[2018-04-08] MEDS: DEXAMETHASONE SOD PHOSPHATE 10 MG/ML 1 ML VIAL IV ONE ×2 (11:38→16:13)
[2018-04-08] MEDS: MELOXICAM 7.5 MG TAB PO ONE ×2 (11:38→16:12)
[2018-04-08] MEDS: LACTATED RINGERS 1,000 ML IV SCH ×2 (11:38→12:37)
[2018-04-08 11:41] VITALS: RESP 16
[2018-04-08] MEDS ORDERED: PHENYLEPHRINE-0.9% NACL SYG 1 MG/10 ML SYRINGE ONE (12:36)
[2018-04-08] MEDS ORDERED: TRANEXAMIC ACID 1,000 MG/10 ML VIAL ONE (12:36)
[2018-04-08] MEDS ORDERED: SODIUM CHLORIDE 0.9% 100 ML BAG ONE (12:36)
[2018-04-08] MEDS ORDERED: MIDAZOLAM 2 MG/2 ML VIAL ONE (12:36)
[2018-04-08] MEDS ORDERED: ePHEDrine SULFATE/0.9% NACL/PF 50 MG/5 ML SYRINGE IV ONE (12:36)
[2018-04-08] MEDS ORDERED: PROPOFOL 10 MG/ML 20 ML VIAL IV ONE (12:36)
[2018-04-08] MEDS ORDERED: fentaNYL (PF) 50 MCG/ML 2 ML AMP ONE (12:36)
[2018-04-08] MEDS ORDERED: ONDANSETRON 4 MG/2 ML VIAL IVP PRN (14:47)
[2018-04-08] MEDS ORDERED: NALOXONE 0.4 MG/ML 1 ML VIAL IV PRN (14:47)
[2018-04-08] MEDS ORDERED: HYDROcodone/APAP 7.5-325MG 1 EACH TAB PO PRN (14:47)
[2018-04-08] MEDS ORDERED: MAGNESIUM HYDROXIDE 2,400 MG/10 ML CUP PO PRN (14:47)
--- NOTE | 2018-04-08 14:57 | P.OP ---
Date of Procedure: 04/08/18 Preoperative Diagnosis: Right hip severe osteoarthrosis Postoperative Diagnosis: Same Procedure(s) Performed: Right total hip arthroplasty-press fit-lateral approach Implants: Depuy Corail size11 press fit standard femoral stem, 32mm +1 cobalt chrome head , 50mm [place] acetabular shell with neutral polyethylene liner Anesthesia: spinal Surgeon: Ino Patino Estimated Blood Loss (ml): 350 Pathology: other (femoral head) Condition: stable Disposition: PACU Indications for Procedure: The patient is a 52-year-old female who presents with progressive right hip pain secondary Edvin arthrosis despite conservative measures. A discussion of the risks and benefits of operative intervention versus continued conservative measures was made with the patient. She opted to proceed with surgery. Operative risks to include infection, neurovascular injury, development of blood clots, possible leg length discrepancy, possible fracture, possible instability, and possible need for subsequent procedures was discussed. Informed consent was obtained. Operative Findings: As below Description of Procedure: The patient was brought to the operating room, and after induction of spinal anesthesia was placed in a lateral decubitus position. The bony prominences were appropriately padded. The pelvis was stable perpendicular to the floor with a pegboard. The right lower extremity was prepped and draped in normal fashion. A 12 cm incision was then made centered over the greater trochanter extending superiorly to level the ASIS and distally in line with the femoral shaft. The skin and subcutaneous tissues were divided sharply. Electrocautery was used for hemostasis. The fascia dalia and gluteus bing fascia was split in line with the skin incision. The muscle fibers were bluntly dissected proximally. A self-retaining retractor was placed. The anterior and posterior margins of the gluteus medius muscles identified and the anterior two thirds was detached from the greater trochanter with electrocautery. The gluteus minimus tendon was identified and detached in a similar fashion. A wide capsulotomy was performed. The femoral neck fracture was identified in the lower neck cut was made approximately 1 1/2 cm above the level of the lesser trochanter with a sagittal saw at a 45 to the shaft. The head was then extracted with a corkscrew. Attention was then paid towards preparing the acetabular. Anterior and posterior retractors were placed. The remaining capsular labral tissues debrided sharply clearly defining the acetabular margins. Began reaming with a 43 mm reamer taking care to initially medialize, then reaming at 45 of abduction and 20 of anteversion. Sequential reaming is performed up to 49 mm. This was down to a bleeding bony surface. A trial 50 mm acetabular shell was inserted at 45 of abduction and 20 of anteversion. This was fully seated. There was good rim fit and stability. I did place a 6.5 mm x 25 mm cancellus screw with good purchase posteriorly. A neutral polyethylene liner was then impacted. Care taken to avoid any soft tissue interposition. Attention was then paid towards preparing the proximal femur. A box chisel was used to open the metaphyseal region. A canal finder was used to find the femoral canal. Sequential broaching was performed up to a size 11. This is placed in 15 of anteversion with the leg perpendicular floor judging off the trans-epicondylar axis. There is good rotational stability. A calcar mill was used to fashion the medial calcar. A trial standard neck along with a 32 mm +1 trial head was placed. The hip was gently reduced. It was taken through range of motion. I felt to be stable in flexion and extension with internal and external rotation. I felt there was adequate temple of soft tissue tension. The hip was gently dislocated. The trial components removed. Pulsatile lavage was utilized. The final size 11 standard collared femoral stem was inserted again with the leg perpendicular to the floor in 15 of anteversion. Again there was good rotational stability. A 32 mm + 1 cobalt chrome femoral head was gently impacted. The hip was gently reduced. Again it was taken through motion and felt to be stable in flexion and extension with internal and external rotation. Pulsatile lavage was again utilized. With the leg in abduction the gluteus minimus and medius tendons reattached to the greater trochanter with #2 Ethibond suture. There was minimal drainage therefore a deep drain was not placed. The fascia dalia and gluteus bing fascia was closed with #2 Ethibond suture. The subcutaneous tissues were reapproximated interrupted 2-0 Vicryl sutures. The skin was reapproximated with 3-0 subcuticular strata fix suture. Skin tape and adhesive was applied. A sterile dressing was applied. The patient was awoken from sedation and transferred to recovery room in good condition. Blood loss was estimated 350 mL. No complications were incurred. Sponge and needle counts were correct in the case.
--- NOTE | 2018-04-08 15:09 | XR ---
Right hip HISTORY: Status post right hip arthroplasty Single frontal view of the right hip Patient is status post right hip arthroplasty. There is anatomic alignment. Lucency in the soft tissu es compatible with postop state. Postop changes in the lumbar spine. IMPRESSION: Orthopedic follow-up.
[2018-04-08] MEDS: HYDROmorphone 0.5 MG/0.5 ML SYRINGE IVP PRN ×2 (16:24→20:29)
[2018-04-08 16:31] VITALS: BMI 38.0
[2018-04-08] MEDS: ceFAZolin IN SWFI 2 GM/20 ML SYRINGE IVP SCH (20:29)
[2018-04-08] MEDS: SENNOSIDES-DOCUSATE SODIUM 1 EACH TAB PO SCH (20:29)
[2018-04-09] MEDS: HYDROcodone/APAP 7.5-325MG 1 EACH TAB PO PRN ×4 (00:31→22:19)
--- NOTE | 2018-04-09 00:34 | P.CONS ---
History of Present Illness - Reason for Consult Consult date: 04/08/18 Medical management of hypertension and other medical problems - Chief Complaint Admitted for elective right total hip arthroplasty - History of Present Illness Patient is a 52-year-old female with a known history of hypertension, hyperlipidemia and osteoarthritis and also history of anxiety/depression was admitted to the hospital for right total hip arthroplasty. Patient tolerated the procedure very well. Patient has been having severe arthritis of the right hip and affecting her daily activities. No complaints of dizziness or lightheadedness.. No nausea vomiting or abdominal pain. Right hip pain is controlled with [place] at this time. Denied any chest pain or shortness of breath. Patient was hypotensive with blood pressure 97/ 53 mmHg after surgery. Review of Systems Constitutional: Patient denies any fever or chills . No generalized weakness or weight loss. Abdomen: Patient denied nausea vomiting and diarrhea and abdominal pain. Cardiovascular: Patient denies any chest pain or short of breath no palpitations. Respiratory: patient denied any cough is from production. No shortness of breath Neurologic: Patient denied any numbness or tingling headache. Musculoskeletal: Patient denies any complaints of joint swelling or deformity. Skin: Negative Psychiatric: Negative Endocrine: No heat or cold intolerance. No recent weight gain. Genitourinary: No dysuria or hematuria. All other 14 point ROS negative except the above Past Medical History Past Medical History: Hyperlipidemia, Hypertension, Osteoarthritis (OA) History of Any Multi-Drug Resistant Organisms: None Reported Past Surgical History: Back Surgery, Hysterectomy, Joint Replacement, Tonsillectomy, Tubal Ligation Additional Past Surgical History / Comment(s): ANGEL TOTAL KNEES 2011. LAMINECTOMY , revision right tka 2017 Past Anesthesia/Blood Transfusion Reactions: Previous Problems w/ Anesthesia, Postoperative Nausea & Vomiting (PONV) Additional Past Anesthesia/Blood Transfusion Reaction / Comm: W/ KNEE AND BACK SURGERIES, BLOOD PRESSURE "WENT LOW." Past Psychological History: Anxiety, Depression Additional Psychological History / Comment(s): STATES "IN PAST," NONE NOW. Smoking Status: Never smoker Past Alcohol Use History: None Reported Past Drug Use History: None Reported - Past Family History Father Sister(s) Family Medical History: Cancer Medications and Allergies Home Medications Medication Instructions Recorded Confirmed Type Simvastatin [Zocor] 40 mg PO HS 08/30/13 04/08/18 History buPROPion HCL [Wellbutrin XL] 150 mg PO DAILY 08/30/13 04/08/18 History Venlafaxine HCl [Effexor XR] 37.5 mg PO DAILY 01/12/18 04/08/18 History Enalapril Maleate [Vasotec] 20 mg PO DAILY 04/01/18 04/08/18 History Hydrochlorothiazide [Hydrodiuril] 12.5 mg PO DAILY 04/01/18 04/08/18 History Ibuprofen [Motrin] 800 mg PO Q6H PRN 04/01/18 04/08/18 History Multivit with Calcium,Iron,Min 1 tab PO DAILY 04/01/18 04/08/18 History [Women's Multivitamin] Allergies Allergy/AdvReac Type Severity Reaction Status Date / Time No Known Allergies Allergy Verified 04/08/18 15:17 Physical Exam Vitals: Vital Signs Temp Pulse Pulse Resp BP BP Pulse Ox 04/08/18 19:57 97.5 F L 100 16 122/80 96 04/08/18 17:45 100 128/84 04/08/18 17:30 95 129/81 04/08/18 17:15 92 127/78 04/08/18 17:00 83 135/83 04/08/18 16:45 83 132/83 04/08/18 16:30 84 143/90 04/08/18 16:15 92 121/76 04/08/18 16:00 76 126/79 04/08/18 15:45 97.4 F L 73 16 111/75 04/08/18 15:27 75 16 105/61 99 04/08/18 15:12 72 16 95/55 100 04/08/18 14:57 68 16 95/54 100 04/08/18 14:42 97.2 F L 77 16 97/53 99 04/08/18 11:39 97.8 F 77 16 142/81 99 Intake and Output 04/08/18 04/08/18 04/09/18 14:59 22:59 06:59 Intake Total 1700 50 Output Total 350 Balance 1350 50 Intake: IV 1700 50 Output: Estimated Blood Loss 350 Other: # Voids 1 PHYSICAL EXAMINATION: Patient is lying in the bed comfortably, no acute distress, awake alert and oriented.. HEENT: Normocephalic. Neck is supple. Pupils reactive. Nostrils clear. Oral cavity is moist. Ears reveal no drainage. Neck reveals no JVD, carotid bruits, or thyromegaly. CHEST EXAMINATION: Trachea is central. Symmetrical expansion. Lung hui clear to auscultation and percussion. CARDIAC: Normal S1, S2 with no gallops. No murmurs ABDOMEN: Soft. Bowel sounds normal. No organomegaly. No abdominal bruits. Extremities: reveal no edema. No clubbing or cyanosis Neurologically awake, alert, oriented x3 with well-coordinated movements. No focal deficits noted Skin: No rash or skin lesions. Psychiatric: Coperative. Nonsuicidal Musculoskeletal: No joint swelling or deformity. Right hip surgical site intact.. Assessment and Plan Assessment: Status post right total hip arthroplasty due to severe right hip arthrosis Hypotension postoperatively. likely due to anesthesia and pain medications. Improved now Hypertension. Blood pressure medications held at this time Hyperlipidemia Osteoarthritis of multiple joints History of laminectomy Anxiety/depression DVT prophylaxis Plan: Patient will be continued on current pain medications and bowel regimen and DVT prophylaxis. Blood pressure medications have been held at this time. Patient takes hydrochlorothiazide and enalapril at home. Continue the home medications. Encourage ambulation and incentive spirometry. Further recommendations based on the clinical course. We will continue to follow with you. Thank you for your consult.
[2018-04-09] MEDS: HYDROmorphone 0.5 MG/0.5 ML SYRINGE IVP PRN (04:18)
[2018-04-09] MEDS: ceFAZolin IN SWFI 2 GM/20 ML SYRINGE IVP SCH (04:21)
[2018-04-09] MEDS: RIVAROXABAN 10 MG TAB PO SCH (07:44)
[2018-04-09] MEDS: HYDROmorphone 1 MG/ML 1 ML SYRINGE IVP PRN ×4 (07:44→19:07)
[2018-04-09 07:52] LABS: Anion Gap 8 mmol/L; Blood Urea Nitrogen 14 mg/dL (7-17); Carbon Dioxide 26 mmol/L (22-30); Chloride 105 mmol/L (98-107); Glucose 118 mg/dL (74-99); Sodium 139 mmol/L (137-145)
[2018-04-09] MEDS: LACTATED RINGERS 1,000 ML IV SCH (07:52)
[2018-04-09 07:58] LABS: Anisocytosis Slight; Basophils % (A) 0 %; Eosinophils % (A) 0 %; HCT 29.6 % (34.0-46.0); Lymphocytes # (A) 1.8 k/uL (1.0-4.8); Lymphocytes % (A) 25 %; MCH 26.6 pg (25.0-35.0); MCHC 32.2 g/dL (31.0-37.0); MCV 82.6 fL (80.0-100.0); Mean Platelet Volume 6.8; Monocytes # (A) 0.6 k/uL (0-1.0); Monocytes % (A) 9 %; Neutrophils # (A) 4.7 k/uL (1.3-7.7); Neutrophils % (A) 64 %; Platelet Count 219 k/uL (150-450); RBC 3.58 m/uL (3.80-5.40); RDW 16.2 % (11.5-15.5); WBC 7.4 k/uL (3.8-10.6)
[2018-04-09 08:01] LABS: HGB 9.5 gm/dL (11.4-16.0)
[2018-04-09] MEDS: traMADol 50 MG TAB PO PRN ×2 (09:55→18:00)
--- NOTE | 2018-04-09 10:46 | P.PN ---
Subjective Progress Note Date: 04/09/18 Principal diagnosis: Status post right total hip arthroplasty lateral approach Patient evaluated at bedside today, she is resting comfortably. She simply with therapy. She denies any fevers or chills, shortness of breath or chest pain. Objective - Vital Signs Vital signs: Vital Signs Temp 98.3 F 04/09/18 07:00 Pulse 78 04/09/18 07:00 Resp 16 04/09/18 07:00 BP 111/74 04/09/18 07:00 Pulse Ox 96 04/09/18 07:00 Intake & Output 04/08/18 04/09/18 04/09/18 18:59 06:59 18:59 Intake Total 1750 140 Output Total 350 Balance 1400 140 Intake: IV 1750 Intake, IV Titration 140 Amount Lactated Ringers 1,000 ml 140 @ 50 mls/hr IV .Q20H EDUAR Rx#:[id number] Output: Estimated Blood Loss 350 Other: # Voids 1 - Exam Right lower extremity: Incision is clean, dry, and intact. The exofin fusion tape is in good condition. There is minimal soft tissue swelling and ecchymosis surrounding the medial and lateral aspects of the incision. Calf is soft, no tenderness with palpation. Plantar flexion, dorsiflexion, EHL, FHL are intact. Sensory exam to light touch throughout the extremity is intact, dorsal pedis pulses 2+. - Labs CBC & Chem 7: 04/09/18 07:14 04/09/18 07:14 Labs: Abnormal Lab Results - Last 24 Hours (Table) 04/09/18 04/09/18 Range/Units 07:14 07:14 RBC 3.58 L (3.80-5.40) m/uL Hgb 9.5 L D (11.4-16.0) gm/dL Hct 29.6 L (34.0-46.0) % RDW 16.2 H (11.5-15.5) % Glucose 118 H (74-99) mg/dL Assessment and Plan Plan: Assessment: Postoperative day #1 status post right total hip arthroplasty Plan: Pain control, continue oral medication, wean off of IV pain medication GI and DVT prophylaxis, continue current medication Encourage incentive spirometer Daily dressing changes/ice and elevate Posterior hip precautions Continue work with physical therapy Medical recommendations Discharge planning: Plan for discharge home tomorrow Time with Patient: Less than 30
--- NOTE | 2018-04-09 11:20 | CDI ---
Documentation Clarification Form Date: 04/09/2018 10:55:24 AM From: Jannet Zavala RN, CCDS Admit Date: 04/08/2018 10:27:00 AM Patient Name: Gwendolyn Hargrove Visit Number: [id number] Discharge Date: ATTENTION: The Clinical Documentation Specialists (CDI) and [facility] Coding Staff appreciate your assistance in clarifying documentation. Please respond to the clarification below the line at the bottom and electronically sign. The CDI & [facility] Coding staff will review the response and follow-up if needed. Please note: Queries are made part of the Legal Health Record. If you have any questions, please contact the author of this message via ITS. Dr. Sapphire Perry The patient presented for elective right total hip arthroplasty. History/Risk Factors: Hyperlipidemia, Hypertension Clinical Indicators: 52 year-old female admit for elective right total hip arthroplasty with known history of hypertension. Patient was hypotensive with blood pressure 97/53 mmHg after surgery. Past medical history has noted with knee and back surgeries, blood pressure "went low". Vital Signs: 04/08/18: 97/53, 95/54, 95/55 105/61 Treatment: Hold blood pressure meds, Monitor Vital signs Please document if the hypotension postoperatively due to anesthesia and pain medications was clinically significant for this patient with treatment and/or monitoring did it impact the hospital stay? Hypotension d/t anesthesia and medications not clinically significant Hypotension d/t anesthesia and medications clinically significant, monitored and treated for this hospital Other, please specify Unable to determine (Last Revision: May 2017) Hypotension d/t anesthesia and medications not clinically significant MTDD
[2018-04-09] MEDS: SENNOSIDES-DOCUSATE SODIUM 1 EACH TAB PO SCH (19:41)
--- NOTE | 2018-04-09 23:47 | P.PN ---
Subjective Progress Note Date: 04/09/18 Principal diagnosis: right total hip arthroplasty Patient is a 52-year-old female with a known history of hypertension, hyperlipidemia and osteoarthritis and also history of anxiety/depression was admitted to the hospital for right total hip arthroplasty. Patient tolerated the procedure very well. Patient has been having severe arthritis of the right hip and affecting her daily activities. No complaints of dizziness or lightheadedness.. No nausea vomiting or abdominal pain. Right hip pain is controlled with [place] at this time. Denied any chest pain or shortness of breath. Patient was hypotensive with blood pressure 97/ 53 mmHg after surgery. 04/09/2018 Patient is complaining of right hip pain which is fairly controlled with pain medications. No fever no chills. No commerce of chest pain or shortness of breath. No headache or dizziness or lightheadedness. Hemoglobin is 9.5 today. No fever no chills. No other acute overnight issues. Current medications reviewed. Objective - Vital Signs Vital signs: Vital Signs Temp 98.4 F 04/09/18 14:05 Pulse 85 04/09/18 14:05 Resp 16 04/09/18 14:05 BP 109/69 04/09/18 14:05 Pulse Ox 97 04/09/18 14:05 Intake & Output 04/08/18 04/09/18 04/09/18 18:59 06:59 18:59 Intake Total 1750 140 400 Output Total 350 Balance 1400 140 400 Intake: IV 1750 400 Lactated Ringers 1,000 ml 400 @ 50 mls/hr IV .Q20H EDUAR Rx#:[id number] Intake, IV Titration 140 Amount Lactated Ringers 1,000 ml 140 @ 50 mls/hr IV .Q20H EDUAR Rx#:[id number] Output: Estimated Blood Loss 350 Other: # Voids 1 3 - Exam PHYSICAL EXAMINATION: Patient is lying in the bed comfortably, no acute distress, awake alert and oriented.. HEENT: Normocephalic. Neck is supple. Pupils reactive. Nostrils clear. Oral cavity is moist. Ears reveal no drainage. Neck reveals no JVD, carotid bruits, or thyromegaly. CHEST EXAMINATION: Trachea is central. Symmetrical expansion. Lung hui clear to auscultation and percussion. CARDIAC: Normal S1, S2 with no gallops. No murmurs ABDOMEN: Soft. Bowel sounds normal. No organomegaly. No abdominal bruits. Extremities: reveal no edema. No clubbing or cyanosis Neurologically awake, alert, oriented x3 with well-coordinated movements. No focal deficits noted Skin: No rash or skin lesions. Psychiatric: Coperative. Nonsuicidal Musculoskeletal: No joint swelling or deformity. Right hip surgical site intact. - Labs CBC & Chem 7: 04/09/18 07:14 04/09/18 07:14 Labs: Abnormal Lab Results - Last 24 Hours (Table) 04/09/18 04/09/18 Range/Units 07:14 07:14 RBC 3.58 L (3.80-5.40) m/uL Hgb 9.5 L D (11.4-16.0) gm/dL Hct 29.6 L (34.0-46.0) % RDW 16.2 H (11.5-15.5) % Glucose 118 H (74-99) mg/dL Assessment and Plan Assessment: Status post right total hip arthroplasty due to severe right hip arthrosis postoperative day 1 Hypotension postoperatively. likely due to anesthesia and pain medications. Improved now Normocytic anemia. Possible acute blood loss. Monitor H&H. Rule out iron deficiency Hypertension. Blood pressure medications held at this time Hyperlipidemia Osteoarthritis of multiple joints History of laminectomy Anxiety/depression DVT prophylaxis Plan: Patient will be continued on current pain medications and bowel regimen and DVT prophylaxis. Monitor H&H Blood pressure medications have been held at this time. Patient takes hydrochlorothiazide and enalapril at home. Continue the home medications. Encourage ambulation and incentive spirometry. Further recommendations based on the clinical course. We will continue to follow with you.
[2018-04-10] MEDS: traMADol 50 MG TAB PO PRN ×2 (00:06→10:17)
[2018-04-10] MEDS: LACTATED RINGERS 1,000 ML IV SCH (05:38)
[2018-04-10] MEDS: HYDROcodone/APAP 7.5-325MG 1 EACH TAB PO PRN (07:05)
[2018-04-10] MEDS: RIVAROXABAN 10 MG TAB PO SCH (07:06)
[2018-04-10 07:15] VITALS: BP 112/70; PULSE 88
--- NOTE | 2018-04-10 12:29 | P.PN ---
Subjective Progress Note Date: 04/10/18 Principal diagnosis: Status post right total hip arthroplasty lateral approach Patient evaluated at bedside today, she is resting comfortably. She simply with therapy. She denies any fevers or chills, shortness of breath or chest pain. Objective - Vital Signs Vital signs: Vital Signs Temp 99.4 F 04/10/18 07:00 Pulse 88 04/10/18 07:00 Resp 16 04/10/18 07:00 BP 112/70 04/10/18 07:00 Pulse Ox 91 L 04/10/18 07:00 Intake & Output 04/09/18 04/10/18 04/10/18 18:59 06:59 18:59 Intake Total 400 450 420 Balance 400 450 420 Intake: IV 400 300 Lactated Ringers 1,000 ml 400 300 @ 50 mls/hr IV .Q20H EDUAR Rx#:[id number] Intake, IV Titration 150 Amount Lactated Ringers 1,000 ml 150 @ 50 mls/hr IV .Q20H EDUAR Rx#:[id number] Oral 420 Other: # Voids 3 - Exam Right lower extremity: Incision is clean, dry, and intact. The exofin fusion tape is in good condition. There is minimal soft tissue swelling and ecchymosis surrounding the medial and lateral aspects of the incision. Calf is soft, no tenderness with palpation. Plantar flexion, dorsiflexion, EHL, FHL are intact. Sensory exam to light touch throughout the extremity is intact, dorsal pedis pulses 2+. - Labs CBC & Chem 7: 04/09/18 07:14 04/09/18 07:14 Assessment and Plan Plan: Assessment: Postoperative day #2 status post right total hip arthroplasty Plan: Pain control, discharge on oral medication GI and DVT prophylaxis, even milligram aspirin twice a day Encourage incentive spirometer Daily dressing changes/ice and elevate Posterior hip precautions Continue work with physical therapy Medical recommendations Discharge planning: Plan for discharge home today Time with Patient: Less than 30
--- NOTE | 2018-04-10 12:31 | P.DS ---
Providers Date of admission: 04/08/18 10:27 Expected date of discharge: 04/10/18 Attending physician: Ino Patino Primary care physician: Betty Ziegler Hospital Course: Date of admission: 04/08/2018 Date of discharge: 04/10/2018 Admission diagnosis: Status post right total hip arthroplasty Discharge diagnosis: Same Attending physician: Dr. Patino Surgical procedures: Right total hip arthroplasty Brief history: Patient is a 52-year-old female with a history of progressive primary right hip posture arthritis. At this point patient has failed conservative treatment measures and has opted to proceed with a elective right total hip arthroplasty. Hospital course: Details of patient's surgery can be found in operative report. Patient tolerated the procedure well and was subsequently transported to orthopedic floor. Patient's orthopeidc and medical care was provided daily. Patient had daily laboratory tests performed for evaluation of overall blood counts. Patient had daily physical therapy to include strengthening range of motion as well as education with walker ambulation. Patient was treated with Xarelto for their postoperative DVT prophylaxis during their inpatient stay. Patient was noted to have a relatively uneventful postoperative course. Patient reported satisfactory pain control with oral pain medications by postoperative day 0. Patient showed satisfactory progress with physical therapy. Patient moved steadily through the program and had no difficulty meeting the goals by postoperative day 2. Given patient's otherwise satisfactory course and having met physical therapy goals, plan is to discharge patient home on postoperative day 2. Discharge condition/disposition: Patient will be discharged home in stable condition. Discharge medications: Instructions are given on resumption of patient's normal daily medications per primary care recommendation, in addition patient will be prescribed Center 7.5 mg/325 mg, Colace 100 mg, aspirin 81 mg. Discharge instructions: 1. Wound care and infection precautions, keep incision dry and covered while showering, no lotions, creams, moisturizers. No soaking, tubs, pools, hottubs. Do not scrub over the incision. 2. Weight-bear as tolerated with walker / cane until follow-up. 3. Ice and elevate when necessary. Do not exceed 20 minutes per hour with ice pack. 4. Utilize compression sleeve until seen at first follow up appointment. 5. Visiting nursing care. 6. Home physical therapy. 7. Pain meds and anticoagulants per prescription. 8. Pain medication has potential to cause constipation. Increase oral fluid and fiber intake. Contact primary care provider if you have not had a bowel movement within 48 hours after discharge 9. No anti-inflammatory medication until discussed at first post operative visit, this including Motrin, Aleve, Mobic, Diclofenac. 10. Follow up in office at 2 weeks postop with Otilio Perkins PA-C 11. Follow up with your primary care doctor 7-10 days after discharge. 12. Contact [facility] with any questions, . Procedures: Right total hip arthroplasty lateral approach Plan - Discharge Summary Discharge Rx Participant: Yes New Discharge Prescriptions: New Docusate [Colace] 100 mg PO DAILY #30 capsule HYDROcodone/APAP 7.5-325MG [Center 7.5] 1 - 2 each PO Q6HR PRN #56 tab PRN Reason: Pain Aspirin [Adult Low Dose Aspirin EC] 81 mg PO BID #60 tablet. No Action buPROPion HCL [Wellbutrin XL] 150 mg PO DAILY Simvastatin [Zocor] 40 mg PO HS Venlafaxine HCl [Effexor XR] 37.5 mg PO DAILY Hydrochlorothiazide [Hydrodiuril] 12.5 mg PO DAILY Enalapril Maleate [Vasotec] 20 mg PO DAILY Ibuprofen [Motrin] 800 mg PO Q6H PRN PRN Reason: Pain Multivit with Calcium,Iron,Min [Women's Multivitamin] 1 tab PO DAILY Discharge Medication List Simvastatin [Zocor] 40 mg PO HS 08/30/13 [History] buPROPion HCL [Wellbutrin XL] 150 mg PO DAILY 08/30/13 [History] Venlafaxine HCl [Effexor XR] 37.5 mg PO DAILY 01/12/18 [History] Enalapril Maleate [Vasotec] 20 mg PO DAILY 04/01/18 [History] Hydrochlorothiazide [Hydrodiuril] 12.5 mg PO DAILY 04/01/18 [History] Ibuprofen [Motrin] 800 mg PO Q6H PRN 04/01/18 [History] Multivit with Calcium,Iron,Min [Women's Multivitamin] 1 tab PO DAILY 04/01/18 [ History] Docusate [Colace] 100 mg PO DAILY #30 capsule 04/09/18 [Rx] HYDROcodone/APAP 7.5-325MG [Center 7.5] 1 - 2 each PO Q6HR PRN #56 tab 04/09/18 [ Rx] Aspirin [Adult Low Dose Aspirin EC] 81 mg PO BID #60 tablet. 04/10/18 [Rx] Follow up Appointment(s)/Referral(s): Huy Perkins PAC [PHYSICIAN TITLE I MATH TUTOR] - 2 Weeks [facility], [REFERRING] - Activity/Diet/Wound Care/Special Instructions: Orthopedic Discharge Instructions: 1. Wound care and infection precautions, keep incision dry and covered while showering, no lotions, creams, moisturizers. No soaking, pools, hot tubs. Do not scrub over incision. 2. Weight-bear as tolerated with walker / cane until follow-up. 3. Ice and elevate when necessary. Do not exceed 20 minutes per hour with ice pack. 4. Utilize compression sleeve until seen at first follow up appointment. 5. Pain meds and anticoagulants per prescription. 6. Pain medication has potential to cause constipation. Increase oral fluid and fiber intake. Contact primary care provider if you have not had a bowel movement within 48 hours after discharge. 7. No anti-inflammatory medication until discussed at first post operative visit, this including Motrin, Aleve, Mobic, Diclofenac. 8. Follow up in office at 2 weeks postop with Otilio Perkins PA-C 9. Follow up with your primary care doctor 7-10 days after discharge. 10. Contact [facility] with any questions, . Discharge Disposition: HOME WITH HOME HEALTH SERVICES
[2018-04-10 13:18] VITALS: TEMP 98.2
--- NOTE | 2018-04-12 15:18 | CDI ---
Documentation Clarification Form Date: 04/12/2018 2:06:00 PM From: Mariella Mena Barbara Hernández, Inside Wireman Hours-8:30 am & 5 pm Jimenez Admit Date: 04/08/2018 10:27:00 AM Patient Name: Gwendolyn Hargrove Visit Number: [id number] Discharge Date: 04/10/2018 2:33:00 PM ATTENTION: The Clinical Documentation Specialists (CDI) and [facility] Coding Staff appreciate your assistance in clarifying documentation. Please respond to the clarification below the line at the bottom and electronically sign. The CDI & [facility] Coding staff will review the response and follow-up if needed. Please note: Queries are made part of the Legal Health Record. If you have any questions, please contact the author of this message via ITS. Dr. Ino Patino A diagnosis of possile blood loss anemia is documented in PN. In order to accurately reflect your patients severity of condition, clarification is needed. History/Risk Factors: Hip replacement: EBL 350ml Clinical indicators: hypotension Hemoglobin: 9.5 Hematocrit: 29.6 Treatment: Monitor HH In order to capture the severity of condition, please clarify the type of anemia and etiology if known: Acute blood loss anemia Acute on chronic blood loss anemia Chronic blood loss anemia Iron deficiency anemia Hemolytic anemia Drug induced anemia Nutritional anemia Unable to determine Other, please specify acute blood loss anemia MTDD
== END 2018-04-10 14:33 | disposition home health service (06) | DRG 470 ==
LOC: 2ORMAIN 04-08 10:27 → 4SSUR 04-08 15:04
PROVIDERS: ADMIT Orthopaedic Surgery; ATTEND Orthopaedic Surgery
PROC: 0SR90JA Replacement of Right Hip Joint with Synthetic Substitute, Uncemented, Open Approach (ICD-10-PCS; principal; 2018-04-08 12:30)
DX: M16.11 Unilateral primary osteoarthritis, right hip (principal); D62 Acute posthemorrhagic anemia; I10 Essential (primary) hypertension; E78.00 Pure hypercholesterolemia, unspecified; F41.9 Anxiety disorder, unspecified; F32.9 Major depressive disorder, single episode, unspecified; E78.5 Hyperlipidemia, unspecified; I95.2 Hypotension due to drugs; T41.3X5A Adverse effect of local anesthetics, initial encounter; Z79.899 Other long term (current) drug therapy; Z96.653 Presence of artificial knee joint, bilateral; Z98.1 Arthrodesis status; Z90.710 Acquired absence of both cervix and uterus; Z82.49 Family history of ischemic heart disease and other diseases of the circulatory system; Z80.9 Family history of malignant neoplasm, unspecified
CPT/HCPCS: 73501; 80048; 82728; 83540; 83550; 85025; 86850; 86900; 86901; 88300

== ENCOUNTER → 2020-07-03 | Outpatient (CLI) | payer BC | END | disposition home or self-care (01) | LOC: LABPAT 08:57 | PROVIDERS: ATTEND Orthopaedic Surgery | DX: Z01.812 Encounter for preprocedural laboratory examination (principal); M16.12 Unilateral primary osteoarthritis, left hip; Z22.322 Carrier or suspected carrier of Methicillin resistant Staphylococcus aureus | CPT/HCPCS: 36415; 86850; 86900; 86901; 87070 ==

== ENCOUNTER 2020-07-10 10:41 | Day surgery (SDC) | payer BC ==
[2020-07-05 08:51] VITALS: BMI 37.5
--- NOTE | 2020-07-09 08:55 | HP ---
HISTORY AND PHYSICAL CHIEF COMPLAINT: Left hip pain. HISTORY OF PRESENT ILLNESS: The patient is a 54-year-old, [employer] employee who presents with progressive left hip pain for the past several years, worsening over the past 4 months. She notes groin and thigh pain that is worse with activity and at night. She also notes weakness. She has tried medications without much relief. PAST MEDICAL HISTORY: Significant for arthritis, hypertension, and gastroesophageal reflux disease. PAST SURGICAL HISTORY: Significant for right total hip arthroplasty, right total knee arthroplasty with subsequent revision, left total knee arthroplasty and lumbar fusion. CURRENT MEDICATIONS: 1. Enalapril. 2. Hydrochlorothiazide. 3. Simvastatin. 4. Ibuprofen. 5. Bupropion. 6. Venlafaxine. ALLERGIES: She denies drug allergies. FAMILY HISTORY: Significant for cancer and heart disease. SOCIAL HISTORY: Negative for current tobacco or alcohol use. REVIEW OF SYSTEMS: Sixteen-point review of systems is otherwise reviewed and is negative except as in HPI. PHYSICAL EXAMINATION: On examination, the patient is approximately 5 feet 3 inches 210 pounds of endomorphic habitus. HEENT exam is nonfocal. Neck is supple. Passive motion left hip, flexion 80 degrees, external rotation with hip flexed 55 degrees, internal rotation 10 degrees with pain. She has no significant leg length discrepancy. Her distal neurovascular exam appears intact in the left lower extremity. She does have an antalgic gait pattern. AP and lateral views of the left hip obtained in the office show moderate to severe osteoarthrosis with subchondral sclerosis. IMPRESSION: Left hip degenerative joint disease-symptomatic. RECOMMENDATIONS: I talked to the patient at length regarding her condition and treatment options. She has tried multiple treatment modalities to include weight loss, stretching, and anti- inflammatories with persistence/worsening of her symptoms. After thorough discussion, she opts to proceed with surgery. We will plan to proceed with left total hip arthroplasty utilizing a lateral approach. Risks and benefits were discussed at length in layman's terms. We will institute DVT prophylaxis postoperatively. The patient underwent preoperative medical evaluation by Dr. Ziegler. PETER / KENZIE: [id number] /
[~2020-07-10 10:41] MED LIST changes: -ACETAMINOPHEN TAB 500 MG TAB PO ONE; +ACETAMINOPHEN TAB 500 MG TAB PO PRN; -DEXAMETHASONE SOD PHOSPHATE 10 MG/ML 1 ML VIAL IV ONE; +DEXAMETHASONE SOD PHOSPHATE 4 MG/ML 1 ML VIAL IV ONE; +HYDROmorphone 0.5 MG/0.5 ML SYRINGE IVP PRN; -LIDOCAINE 1% 20 ML VIAL (10MG/ML) FOR IV START INTRADERMA PRN; -MELOXICAM 7.5 MG TAB PO ONE; +MELOXICAM 7.5 MG TAB PO PRN; -MIDAZOLAM 2 MG/2 ML VIAL IV PRN; -SCOPOLAMINE 1.5MG/72HR PATCH TRANSDERM ONE; +TRANEXAMIC ACID 1,000 MG in SODIUM CHLORIDE 0.9% 100 ML IVPB PRN; -TRANEXAMIC ACID 1,000 MG in SODIUM CHLORIDE 0.9% 50 ML IVPB ONE; -ceFAZolin IN SWFI 2 GM/20 ML SYRINGE IVP ONE
[2020-07-10] MEDS: LACTATED RINGERS 1,000 ML IV SCH ×2 (11:26→20:44)
[2020-07-10] MEDS ORDERED: PROPOFOL 10 MG/ML 20 ML VIAL IV ONE (13:50)
[2020-07-10] MEDS ORDERED: diphenhydrAMINE 50 MG/ML 1 ML VIAL ONE (13:50)
[2020-07-10] MEDS ORDERED: ePHEDrine SULFATE/0.9% NACL/PF 50 MG/5 ML SYRINGE IV ONE (13:50)
[2020-07-10] MEDS ORDERED: SODIUM CHLORIDE 0.9% 100 ML BAG ONE (13:50)
[2020-07-10] MEDS ORDERED: PHENYLEPHRINE-0.9% NACL SYG 1,000 MCG/10 ML SYRINGE ONE (13:50)
[2020-07-10] MEDS ORDERED: MIDAZOLAM 2 MG/2 ML VIAL ONE (13:50)
[2020-07-10] MEDS ORDERED: HYDROmorphone (PF) 1 MG/ML ONE (13:50)
[2020-07-10] MEDS ORDERED: WATER FOR INJECTION, STERILE 10 ML VIAL IV ONE (13:50)
[2020-07-10] MEDS ORDERED: fentaNYL (PF) 50 MCG/ML 2 ML AMP ONE (13:50)
[2020-07-10] MEDS ORDERED: TRANEXAMIC ACID 1,000 MG/10 ML VIAL ONE (13:50)
[2020-07-10] MEDS ORDERED: ceFAZolin 1,000 MG in SODIUM CHLORIDE 0.9% 1,000 ML IRRIGATION ONE (14:24)
[2020-07-10] MEDS ORDERED: LACTATED RINGERS 1,000 ML IV ONE ×2 (15:03→16:42)
[2020-07-10] MEDS ORDERED: MAGNESIUM HYDROXIDE 2,400 MG/10 ML CUP PO PRN (16:19)
[2020-07-10] MEDS ORDERED: HYDROmorphone 0.5 MG/0.5 ML SYRINGE IVP PRN (16:19)
[2020-07-10] MEDS ORDERED: ACETAMINOPHEN TAB 325 MG TAB PO PRN (16:19)
[2020-07-10] MEDS ORDERED: NALOXONE 0.4 MG/ML 1 ML VIAL IV PRN (16:19)
[2020-07-10] MEDS ORDERED: ONDANSETRON 4 MG/2 ML VIAL IVP PRN (16:19)
--- NOTE | 2020-07-10 16:48 | P.OP ---
Date of Procedure: 07/10/20 Preoperative Diagnosis: Left hip severe osteoarthrosissymptomatic Postoperative Diagnosis: Same Procedure(s) Performed: Left total hip arthroplastypress-fitlateral approach Implants: Depuy Corail size 9 standard press-fit collared femoral stem, 32 mm +5 cobalt chrome femoral head, 52 mm Emmett acetabular shell with neutral polyethylene liner. Anesthesia: spinal Surgeon: Ino Patino [employer] Architect #1: Huy Perkins Estimated Blood Loss (ml): 350 Pathology: other (Femoral head) Condition: stable Disposition: PACU Indications for Procedure: The patient is a 54-year-old female presents with progressive left hip pain sec ondary to osteoporosis despite conservative measures. A discussion of the risks and benefits of operative intervention versus continued conservative measures was made with patient. She opted to proceed with surgery. Operative risks to include infection, neurovascular injury, development of blood clots, possible fracture, possible leg length discrepancy, possible instability and need for subsequent procedures was discussed. Informed consent was obtained. Operative Findings: As below Description of Procedure: The patient was brought to the operating room, and after induction of spinal anesthesia was placed in a lateral decubitus position. The bony prominences were appropriately padded. The pelvis was stable perpendicular to the floor with a pegboard. The left lower extremity was prepped and draped in normal fashion. A 12 cm incision was then made centered over the greater trochanter extending superiorly to level the ASIS and distally in line with the femoral shaft. The skin and subcutaneous tissues were divided sharply. Electrocautery was used for hemostasis. The fascia dalia and gluteus bing fascia was split in line with the skin incision. The muscle fibers were bluntly dissected proximally. A self-retaining retractor was placed. The anterior and posterior margins of the gluteus medius muscles identified and the anterior two thirds was detached from the greater trochanter with electrocautery. The gluteus minimus tendon was identified and detached in a similar fashion. A wide capsulotomy was performed. The femoral neck fracture was identified in the lower neck cut was made approximately 1 1/2 cm above the level of the lesser trochanter with a sagittal saw at a 45 the shaft. The head was then extracted with a corkscrew. Attention was then paid towards preparing the acetabular. Anterior and posterior retractors were placed. The remaining capsular labral tissues debrided sharply clearly defining the acetabular margins. Began reaming with a 45 mm reamer taking care to initially medialize, then reaming at 45 of abduction and 20 of anteversion. Sequential reaming is performed up to 51 mm. This was down to bleeding bony surface. A trial 2 mm acetabular shell was inserted at 45 of abduction and 20 of anteversion. This was fully seated. There was good rim fit and stability. I did place a posterior superior 6.5 x 20 mm cancellous screw was good purchase. A neutral polyethylene liner was then impacted. Care taken to avoid any soft tissue interposition. Attention was then paid towards preparing the proximal femur. A box chisel was used to open the metaphyseal region. A canal finder was used to find the femoral canal. Sequential broaching was performed up to a size 9. This is placed in 15 of anteversion with the leg perpendicular floor judging off the trans-epicondylar axis. There is good rotational stability. A calcar mill was used to fashion the medial calcar. A trial standard neck along with a 32 mm + 5 trial head was placed. The hip was gently reduced. It was taken through range of motion. I felt to be stable in flexion and extension with internal and external rotation. I felt there was adequate orthodoxy of soft tissue tension. The hip was gently dislocated. The trial components removed. Pulsatile lavage was utilized. The final size 9 standard collared femoral stem was inserted again with the leg perpendicular to the floor in 15 of anteversion. Again there was good rotational stability. A 32 mm + 5 cobalt chrome femoral head was gently impacted. The hip was gently reduced. Again it was taken through motion and felt to be stable in flexion and extension with internal and external rotation. Pulsatile lavage was again utilized. With the leg in abduction the gluteus minimus and medius tendons reattached to the greater trochanter with #2 Ethibond suture. There was minimal drainage therefore a deep drain was not placed. The fascia dalia and gluteus bing fascia was closed with #2 Ethibond suture. The subcutaneous tissues were reapproximated interrupted 2-0 Vicryl sutures. The skin was reapproximated with 3-0 subcuticular strata fix suture. Skin tape and adhesive was applied. A sterile dressing was applied. The patient was awoken from sedation and transferred to recovery room in good condition. Blood loss was estimated 350 mL. No complications were incurred. Sponge and needle counts were correct in the case. Otilio VELARDE assisted during the major composes case to include exposure, implantation, and closure.
[2020-07-10 17:06] VITALS: RESP 16
[2020-07-10] MEDS ORDERED: KETOROLAC 15 MG/ML 1 ML VIAL IVP ONE (17:10)
--- NOTE | 2020-07-10 17:15 | XR ---
RESULT: HISTORY: Status post hip surgery, assess surgical alignment TECHNIQUE: Single AP view of the left hip. COMPARISON: 06/18/2020. FINDINGS: There is interval postsurgical changes of left total hip arthroplasty. All prosthetic components are well seated without immediate hardware complication. No acute fracture. Associated soft tissue emphysema seen. IMPRESSION: Left hip arthroplasty.
[2020-07-10] MEDS ORDERED: HYDROmorphone 0.5 MG/0.5 ML SYRINGE IVP ONE (17:45)
[2020-07-10] MEDS ORDERED: ZOLPIDEM 10 MG TAB PO PRN (18:57)
[2020-07-10] MEDS: traMADol 50 MG TAB PO SCH ×2 (20:03→22:22)
--- NOTE | 2020-07-10 20:06 | P.CONS ---
History of Present Illness - Reason for Consult Consult date: 07/10/20 Medical management Requesting physician: Ino Patino - Chief Complaint Left hip surgery - History of Present Illness Consultation: This is a pleasant 54 year old patient follows with Dr. Betty Ziegler. Patient has undergone left total hip arthroplasty. Some pain is present. No nausea vomiting. No chest pain or shortness of breath. Did tolerate his supper earlier today. Chronic stable medical conditions include hypertension, hyperlipidemia, osteoarthritis insomnia. Denies any cardiac history. Review of systems: GEN.: Tired EYES: None HEENT: None NECK: None RESPIRATORY: None CARDIOVASCULAR: None GASTROINTESTINAL: None GENITOURINARY: None MUSCULOSKELETAL: Joint pains LYMPHATICS: None HEMATOLOGICAL: None PSYCHIATRY: None NEUROLOGICAL: Trouble sleeping Past medical history to include: Hypertension, hyperlipidemia, osteoarthritis, insomnia Social history: This with her boyfriend. Does not smoke or drink alcohol. Works at [employer] in the [place] Physical examination: VITAL SIGNS: 97.9, 91, 16, 93 x 62, 97% room air GENERAL: BMI 36.7, laying in bed, comfortable. EYES: Pupils equal. Conjunctiva normal. HEENT: External appearance of nose and ears normal, oral cavity grossly normal. NECK: JVD not raised; masses not palpable. HEART: First and second heart sounds are normal; no edema. LUNGS: Respiratory rate normal; clear to auscultation. ABDOMEN: Soft, nontender, liver spleen not palpable, no masses palpable. PSYCH: Alert and oriented x3; mood and affect normal. MUSCULAR skeletal: Dressing over the left hip NEUROLOGICAL: Cranial nerves grossly intact; no facial asymmetry, power and sensation grossly intact. LYMPHATICS: No lymph nodes palpable in the axilla and neck INVESTIGATIONS, reviewed in the clinical context: Coronavirus [PCR]-not detected Assessment and plan: -Left total hip arthroplasty. -Essential hypertension Continue Vasotec -Hyperlipidemia Continue Lipitor -Chronic idiopathic insomnia Ambien when necessary -Depression otherwise specified Continue with Wellbutrin and Effexor Patient is getting Lovenox for DVT prophylaxis. Pain control is in place. Care was discussed with the patient question also. Patient should follow-up with the family doctor per discharge. Thank you Dr. Daniels Past Medical History Past Medical History: Hyperlipidemia, Hypertension, Osteoarthritis (OA) History of Any Multi-Drug Resistant Organisms: None Reported Past Surgical History: Back Surgery, Hysterectomy, Joint Replacement, Tonsillectomy, Tubal Ligation Additional Past Surgical History / Comment(s): ANGEL TOTAL KNEES 2011. LAMINECTOMY, revision right tka 2017, COLONOSCOPY, RT DO Past Anesthesia/Blood Transfusion Reactions: Previous Problems w/ Anesthesia, Postoperative Nausea & Vomiting (PONV) Additional Past Anesthesia/Blood Transfusion Reaction / Comm: W/ KNEE AND BACK SURGERIES, BLOOD PRESSURE "WENT LOW." Past Psychological History: Anxiety, Depression Additional Psychological History / Comment(s): STATES "IN PAST," NONE NOW. Smoking Status: Never smoker Past Alcohol Use History: None Reported Past Drug Use History: None Reported - Past Family History Father Sister(s) Family Medical History: Cancer Father Family Medical History: Cancer Sister(s) Family Medical History: Cancer Medications and Allergies Home Medications Medication Instructions Recorded Confirmed Type buPROPion HCL [Wellbutrin XL] 150 mg PO DAILY 08/30/13 07/05/20 History Venlafaxine HCl [Effexor XR] 37.5 mg PO DAILY 01/12/18 07/10/20 History Enalapril Maleate [Vasotec] 20 mg PO DAILY 04/01/18 07/05/20 History Ibuprofen [Motrin] 800 mg PO Q6H PRN 04/01/18 07/05/20 History Atorvastatin [Lipitor] 40 mg PO HS 07/05/20 07/05/20 History Zolpidem [Ambien] 10 mg PO HS PRN 07/05/20 07/05/20 History Allergies Allergy/AdvReac Type Severity Reaction Status Date / Time No Known Allergies Allergy Verified 07/10/20 11:07 Physical Exam Vitals: Vital Signs Temp Pulse Resp BP Pulse Ox 07/10/20 18:28 80 16 96 07/10/20 18:10 82 16 102/56 98 07/10/20 17:56 82 16 96/54 97 07/10/20 17:31 78 16 95/58 99 07/10/20 17:29 85 16 86/56 98 07/10/20 17:14 84 16 83/55 97 07/10/20 16:59 75 16 93/55 97 07/10/20 16:44 97.5 F L 82 16 80/53 97 07/10/20 11:12 97.6 F 69 17 129/71 100 Intake and Output 07/10/20 07/10/20 07/10/20 06:59 14:59 22:59 Intake Total 1051 1000 Output Total 350 Balance 1051 650 Intake: IV 1051 1000 Output: Estimated Blood Loss 350 Other: Weight 91 kg 91 kg
[2020-07-10] MEDS ORDERED: SENNOSIDES-DOCUSATE SODIUM 1 EACH TAB PO SCH (21:00)
[2020-07-10] MEDS ORDERED: ATORVASTATIN 40 MG TAB PO SCH (21:00)
[2020-07-10] MEDS: HYDROcodone/APAP 7.5-325MG 1 EACH TAB PO PRN (22:03)
[2020-07-11] MEDS: HYDROmorphone 1 MG/ML 1 ML SYRINGE IVP PRN ×2 (00:14→07:35)
[2020-07-11 04:38] VITALS: BP 147/70; PULSE 77; TEMP 98.4
[2020-07-11] MEDS: HYDROcodone/APAP 7.5-325MG 1 EACH TAB PO PRN (05:08)
[2020-07-11] MEDS: traMADol 50 MG TAB PO SCH ×2 (07:34→12:55)
[2020-07-11 07:50] LABS: Basophils % (A) 0 %; Eosinophils % (A) 0 %; HGB 8.9 gm/dL (11.4-16.0); Lymphocytes # (A) 1.6 k/uL (1.0-4.8); Lymphocytes % (A) 22 %; MCH 30.8 pg (25.0-35.0); MCV 90.6 fL (80.0-100.0); Mean Platelet Volume 6.7; Monocytes # (A) 0.7 k/uL (0-1.0); Monocytes % (A) 9 %; Neutrophils # (A) 4.8 k/uL (1.3-7.7); Neutrophils % (A) 67 %; Platelet Count 210 k/uL (150-450); RBC 2.88 m/uL (3.80-5.40); RDW 13.3 % (11.5-15.5); WBC 7.3 k/uL (3.8-10.6)
[2020-07-11] MEDS ORDERED: buPROPion XL 150 MG TAB.ER.24H PO SCH (09:00)
[2020-07-11] MEDS ORDERED: FAMOTIDINE 20 MG TAB PO SCH (09:00)
[2020-07-11] MEDS ORDERED: ENOXAPARIN 40 MG/0.4 ML SYRINGE SQ SCH (09:00)
[2020-07-11] MEDS ORDERED: VENLAFAXINE HCL ER 37.5 MG CAP PO SCH (09:00)
[2020-07-11] MEDS ORDERED: lisinopriL 20 MG TAB PO SCH (09:00)
--- NOTE | 2020-07-11 10:11 | P.PN ---
Subjective Progress Note Date: 07/11/20 Principal diagnosis: Status post left total hip arthroplasty, lateral approach Patient was examined today at bedside, she is resting in her hospital chair. Patient is doing very well she states. Her pain is well-controlled. She ambulated with therapy, she did the stairs and difficulty. She currently has no headaches, lightheadedness, chest pain, shortness of breath, nausea or vomiting. Objective - Vital Signs Vital signs: Vital Signs Temp 98.4 F 07/11/20 02:00 Pulse 77 07/11/20 02:00 Resp 16 07/11/20 02:00 BP 147/70 07/11/20 02:00 Pulse Ox 98 07/11/20 02:00 Intake & Output 07/10/20 07/11/20 07/11/20 18:59 06:59 18:59 Intake Total 2050 740 Output Total 350 Balance 1701 740 Weight 91 kg Intake: IV 2050 Intake, IV Titration 240 Amount Lactated Ringers 1,000 ml 240 @ 20 mls/hr IV .Q24H EDUAR Rx#:[id number] Oral 500 Output: Estimated Blood Loss 350 Other: Voiding Method Bedside Commode # Voids 2 - Exam Left lower extremity: Incision is clean, dry, and intact. The exofin fusion tape is in good condition. There is minimal soft tissue swelling and ecchymosis surrounding the medial and lateral aspects of the incision. Calf is soft, no tenderness with palpation. Plantar flexion, dorsiflexion, EHL, FHL are intact. Sensory exam to light touch throughout the extremity is intact, dorsal pedis pulses 2+. - Labs CBC & Chem 7: 07/11/20 07:06 Labs: Abnormal Lab Results - Last 24 Hours (Table) 07/11/20 Range/Units 07:06 RBC 2.88 L (3.80-5.40) m/uL Hgb 8.9 L (11.4-16.0) gm/dL Hct 26.0 L (34.0-46.0) % Assessment and Plan Assessment: Postoperative day #1 status post left total hip arthroplasty, lateral approach Plan: Pain control, discharge on [place] 7.5 mg/325 mg DVT prophylaxis, aspirin 81 mg twice a day for 1 month Wound care instructions were discussed Icing and elevating techniques discussed Encourage incentive spirometer Hip precautions were discussed Medical recommendations Discharge planning: planning for discharge home today
--- NOTE | 2020-07-11 10:14 | P.DS ---
Providers Date of admission: 07/10/2020 Expected date of discharge: 07/11/20 Attending physician: Ino Patino Consults: 07/10/20 16:23 Consult Physician Routine Consulting Provider: Jacob Mcdaniel Consult Reason/Comments: Medical Management Do you want consulting provider notified?: Yes Primary care physician: Betty Ziegler Hospital Course: Date of admission: 07/10/2020 Date of discharge: 07/11/2020 Admission diagnosis: Status post left total hip arthroplasty, lateral approach Discharge diagnosis: Same Attending physician: Dr. Patino Surgical procedures: Left total hip arthroplasty, lateral approach Brief history: Patient is a 54-year-old female with a history of progressive primary left hip osteoarthritis. At this point patient has failed conservative treatment measures and has opted to proceed with a elective lateral left total hip arthroplasty. Hospital course: Details of patient's surgery can be found in operative report. Patient tolerated the procedure well and was subsequently transported to orthopedic floor. Patient's orthopeidc and medical care was provided daily. Patient had daily laboratory tests performed for evaluation of overall blood c ounts. Patient had daily physical therapy to include strengthening range of motion as well as education with walker ambulation. Patient was treated with Lovenox for their postoperative DVT prophylaxis during their inpatient stay. Patient was noted to have a relatively uneventful postoperative course. Patient reported satisfactory pain control with oral pain medications by postoperative day 0. Patient showed satisfactory progress with physical therapy. Patient moved steadily through the program and had no difficulty meeting the goals by postoperative day 1. Given patient's otherwise satisfactory course and having met physical therapy goals, plan is to discharge patient home on postoperative day 1. Discharge condition/disposition: Patient will be discharged home in stable condition. Discharge medications: Instructions are given on resumption of patient's normal daily medications per primary care recommendation, in addition patient will be prescribed [place] 7.5 mg/325 mg, Colace 100 mg, aspirin 81 mg. Discharge instructions: 1. Wound care and infection precautions, keep incision dry and covered while showering, no lotions, creams, moisturizers. No soaking, tubs, pools, hottubs. Do not scrub over the incision. 2. Weight-bear as tolerated with walker / cane until follow-up. 3. Ice and elevate when necessary. Do not exceed 20 minutes per hour with ice pack. 4. Utilize compression sleeve until seen at first follow up appointment. 5. Hip precautions to include no bending at the waist, do not bend over and tie shoes, avoid sitting in a low seated chair, no sleeping on the left-hand side, no crossing of the legs 7. Pain meds and anticoagulants per prescription. 8. Pain medication has potential to cause constipation. Increase oral fluid and fiber intake. Contact primary care provider if you have not had a bowel movement within 48 hours after discharge 9. No anti-inflammatory medication until discussed at first post operative visit, this including Motrin, Aleve, Mobic, Diclofenac, Aspirin. 10. Follow up in office at 2 weeks postop with Otilio Perkins PA-C/Michael Bahena 11. Follow up with your primary care doctor 7-10 days after discharge. 12. Contact [facility] with any questions, . Procedures: Left total hip arthroplasty, lateral approach Patient Condition at Discharge: Good Plan - Discharge Summary Discharge Rx Participant: Yes New Discharge Prescriptions: New Aspirin [Adult Low Dose Aspirin EC] 81 mg PO BID #60 tablet. HYDROcodone/APAP 7.5-325MG [[place] 7.5] 1 - 2 each PO Q6HR PRN #42 tab PRN Reason: Pain Docusate [Colace] 100 mg PO DAILY #30 capsule No Action buPROPion HCL [Wellbutrin XL] 150 mg PO DAILY Venlafaxine HCl [Effexor XR] 37.5 mg PO DAILY Enalapril Maleate [Vasotec] 20 mg PO DAILY Ibuprofen [Motrin] 800 mg PO Q6H PRN PRN Reason: Pain Atorvastatin [Lipitor] 40 mg PO HS Zolpidem [Ambien] 10 mg PO HS PRN PRN Reason: Insomnia Discharge Medication List buPROPion HCL [Wellbutrin XL] 150 mg PO DAILY 08/30/13 [History] Venlafaxine HCl [Effexor XR] 37.5 mg PO DAILY 01/12/18 [History] Enalapril Maleate [Vasotec] 20 mg PO DAILY 04/01/18 [History] Ibuprofen [Motrin] 800 mg PO Q6H PRN 04/01/18 [History] Atorvastatin [Lipitor] 40 mg PO HS 07/05/20 [History] Zolpidem [Ambien] 10 mg PO HS PRN 07/05/20 [History] Aspirin [Adult Low Dose Aspirin EC] 81 mg PO BID #60 tablet. 07/11/20 [Rx] Docusate [Colace] 100 mg PO DAILY #30 capsule 07/11/20 [Rx] HYDROcodone/APAP 7.5-325MG [[place] 7.5] 1 - 2 each PO Q6HR PRN #42 tab 07/11/20 [Rx] Follow up Appointment(s)/Referral(s): Huy Perkins PAC [PHYSICIAN [employer]ER] - 2 Weeks Activity/Diet/Wound Care/Special Instructions: Orthopedic Discharge Instructions: 1. Wound care and infection precautions, keep incision dry and covered while showering, no lotions, creams, moisturizers. No soaking, pools, hot tubs. Do not scrub over incision. 2. Weight-bear as tolerated with walker / cane until follow-up. 3. Ice and elevate when necessary. Do not exceed 20 minutes per hour with ice pack. 4. Utilize compression sleeve until seen at first follow up appointment. 5. Pain meds and anticoagulants per prescription. 6. Pain medication has potential to cause constipation. Increase oral fluid and fiber intake. Contact primary care provider if you have not had a bowel movement within 48 hours after discharge. 7. No anti-inflammatory medication until discussed at first post operative visit, this including Motrin, Aleve, Mobic, Diclofenac,. 8. Follow up in office at 2 weeks postop with Otilio Perkins PA-C/Michael Prado PA-C 9. Follow up with your primary care doctor 7-10 days after discharge. 10. Contact [facility] with any questions, . Discharge Disposition: HOME WITH HOME HEALTH SERVICES
--- NOTE | 2020-07-11 19:48 | P.PN ---
Progress Note - Text Progress Note Date: 07/11/20 - Chief Complaint Left hip surgery Consultation: This is a pleasant 54 year old patient follows with Dr. Betty Ziegler. Patient has undergone left total hip arthroplasty. Some pain is present. No nausea vomiting. No chest pain or shortness of breath. Did tolerate his supper earlier today. Chronic stable medical conditions include hypertension, hyperlipidemia, osteoarthritis insomnia. Denies any cardiac history. Today: Laying in bed. Pain control. No new issues. Oral intake good. Has been out of bed. Review of systems: Was done for constitutional, cardiovascular, GI, pulmonary. relevant finding as above Current medications reviewed in today's electronic records Past medical history to include: Hypertension, hyperlipidemia, osteoarthritis, insomnia Social history: This with her boyfriend. Does not smoke or drink alcohol. Works at [email or web address] in the [place] Physical examination: VITAL SIGNS: 98.4, 77, 16, 1 47 x 70, 98% on room air GENERAL: BMI 36.7, laying in bed, comfortable. EYES: Pupils equal. Conjunctiva normal. NECK: JVD not raised; masses not palpable. HEART: First and second heart sounds are normal; no edema. LUNGS: Respiratory rate normal; clear to auscultation. ABDOMEN: Soft, nontender, liver spleen not palpable, no masses palpable. PSYCH: Alert and oriented x3; mood and affect normal. MUSCULAR skeletal: Dressing over the left hip INVESTIGATIONS, reviewed in the clinical context: Coronavirus [PCR]-not detected Assessment and plan: -Left total hip arthroplasty. Pain control in place -Essential hypertension Continue Vasotec -Hyperlipidemia Continue Lipitor -Chronic idiopathic insomnia Ambien when necessary -Depression otherwise specified Continue with Wellbutrin and Effexor Doing well. Discussed with patient. Follow-up with PCP Thank you Dr. Daniels
== END 2020-07-11 14:42 | disposition home health service (06) ==
LOC: OR 10:41 → 5NMEDONC 17:47 → OR 07-11 14:42
PROVIDERS: ATTEND Orthopaedic Surgery
DX: M16.12 Unilateral primary osteoarthritis, left hip (principal); I10 Essential (primary) hypertension; K21.9 Gastro-esophageal reflux disease without esophagitis; E78.5 Hyperlipidemia, unspecified; G47.00 Insomnia, unspecified; E66.9 Obesity, unspecified; Z68.36 Body mass index [BMI] 36.0-36.9, adult; Z79.82 Long term (current) use of aspirin; Z79.899 Other long term (current) drug therapy
CPT/HCPCS: 27120; 97162; 85025; 88300; 87635; 73501; C1776; J2250; J1200; J1100; J0690 ×3; J2405; J1650; J3010; J1170 ×3; J1885; J2370; J2704; 36415; 86850; 86900; 86901

== ENCOUNTER → 2023-04-29 | Outpatient (CLI) | payer MEDICARE ==
--- NOTE | 2023-05-03 15:40 | CT ---
EXAMINATION TYPE: CT lumbar spine wo con, MR lumbar spine wo con CT DLP: 849 mGycm, Automated exposure control for dose reduction was used. DATE OF EXAM: 04/29/2023 11:22 AM COMPARISON: 04/29/2023 MRI.. CLINICAL INDICATION:Female, 57 years old with history of M54.16 RADICULOPATHY, LUMBAR REGION; PHH, lo wer back pain TECHNIQUE: Multiple axial images were obtained from the midportion of T11 through the sacroiliac carol nts. Soft tissue and bone windows in coronal and sagittal planes were obtained and reviewed. Contrast used: mL of , (None, if empty). Oral contrast used: (None, if empty). Multi planar, multi sequence imaging was performed utilizing: T1-weighted, T2-weighted, and turbo inv ersion recovery imaging of the lumbar spine. IV Contrast: cc . (None if empty) FINDINGS: Alignment: The lumbar vertebral bodies have preserved heights. Mild retrolisthesis of L1 on L2. Cord: The conus medullaris and the distal spinal cord appear unremarkable with regards to their signa l intensity and morphology. Bones/Discs: There is fixation hardware extending from L2 to L4 with discectomy at L3-L4 and L4-L5. H ardware appears intact. There is good osseous fusion of the posterior elements at these levels. No ev idence of fracture. There is osteophyte formation, disc space narrowing and facet and uncovertebral j oint arthropathy present. Laminectomy changes extending from L2 to L5 are present. Susceptibility art ifact on MRI imaging limits evaluation at these levels. Within the limitations of the exam is pain ne ural foramen throughout the lumbar spine spine extending from L2 to L5 at the surgical levels. The de generation changes of the spine are worse at L1-L2 likely secondary to altered spinal mechanics from fixation below this level. Mild degeneration changes throughout the spine with osteophyte formation and facet joint arthropathy . Intervertebral disc signal is maintained. T12-L1: No evidence of significant spinal canal stenosis or neural foraminal stenosis. L1-L2: Retrolisthesis at this level with increased degeneration at this level with severe bilateral n eural foraminal stenosis and mild spinal canal stenosis. Moderate spinal canal stenosis at this level . L2-L3: No evidence of significant spinal canal stenosis or neural foraminal stenosis. L3-L4: No evidence of significant spinal canal stenosis or neural foraminal stenosis. L4-L5: No evidence of significant spinal canal stenosis or neural foraminal stenosis. L5-S1: The disc is rounded posterior morphology without significant spinal canal stenosis. Facet join t arthropathy with mild bilateral neural foraminal stenosis. No significant spinal canal or neural foraminal stenosis in the remainder of the visualized levels. Other findings: None. IMPRESSION: 1. Retrolisthesis with severe degeneration changes at L1-L2 likely secondary to fixation below this level. Retrolisthesis results in severe bilateral neural foraminal stenosis at L1-L2 and moderate spi nal canal stenosis. 2. Within the limitations of CT or MRI examination is no additional evidence for severe spinal canal stenosis. 3. Post surgical changes with Fixation hardware appears intact with good osseous fusion of the poste rior elements.
== END | disposition home or self-care (01) ==
LOC: RADMRIMAIN 10:19
PROVIDERS: ATTEND Neurological Surgery
DX: M43.16 Spondylolisthesis, lumbar region (principal); M99.73 Connective tissue and disc stenosis of intervertebral foramina of lumbar region; M48.061 Spinal stenosis, lumbar region without neurogenic claudication; M47.816 Spondylosis without myelopathy or radiculopathy, lumbar region; Z98.1 Arthrodesis status
CPT/HCPCS: 72131; 72148